=== PATIENT | female | born 1965 | race Caucasian/White ===

== ENCOUNTER 2017-02-28 11:15 | Observation (INO) | payer MEDICAID ==
--- NOTE | 2017-02-28 11:35 | CPEKG ---
Heart Rate: 71 RR Interval: 845 P-R Interval: 144 QRSD Interval: 88 QT Interval: 400 QTC Interval: 435 P [place]: 71 QRS [place]: 53 T Wave [place]: -16 EKG Severity - BORDERLINE ECG - EKG Impression: SINUS RHYTHM EKG Impression: LOW VOLTAGE IN FRONTAL LEADS EKG Impression: BORDERLINE T ABNORMALITIES, DIFFUSE LEADS Electronically Signed By: Pierre Ramírez 02-Mar-2017 09:09:16
[2017-02-28 11:58] LABS: % IMMATURE GRANULYOCYTES 0.2 % (0.0-1.1); ABSOLUTE IMMATURE GRANULOCYTES 0.01 10^3/uL (0.00-0.10); ADD DIFF? NO; ADD MORPH? NO; ADD SCAN? NO; ATYPICAL LYMPHOCYTE FLAG 10 (0-99); FRAGMENT RBC FLAG 0 (0-99); HEMATOCRIT 41.3 % (38.0-47.0); HEMOGLOBIN 13.9 g/dL (12.6-16.3); LEFT SHIFT FLG 0 (0-99); LIPEMIA HEMOLYSIS FLAG 80 (0-99); MEAN CELL HEMOGLOBIN 31.6 pg (27.9-34.1); MEAN CELL HEMOGLOBIN CONCENTR. 33.7 g/dL (32.4-36.7); MEAN CELL VOLUME 93.9 fL (81.5-99.8); MEAN PLATELET VOLUME 11.4 fL (8.7-11.7); PLATELET CLUMPS FLAG 20 (0-99); PLATELET COUNT 231 10^3/uL (150-400); RED CELL DISTRIBUTION WIDTH 12.3 % (11.5-15.2)
--- NOTE | 2017-02-28 12:14 | EDPHY ---
HPI/HX/ROS/PE/MDM Narrative: CHIEF COMPLAINT: Chest pain, dizziness HISTORY OF PRESENT ILLNESS: The patient is a 51 y/o female with a history of GERD arriving with her family members complaining of chest pain onset around midnight this morning, about 12 hours ago. For the last 3 weeks, she's had insomnia, fatigue, and intermittent dizziness and migraines. She has a difficult time describing her dizziness and says it feels "like I need to sit down more" and her "vision is dizzy." Her chest pain today has been intermittent and lasts a few hours at a time. When present, her pain radiates into her back and is associated with nausea and diaphoresis. It is not aggravated by palpation or breathing. She restarted Nexium again 3 days ago, but she does not take medications for her GERD prophylactically. No family or personal history of blood clots, diabetes, cardiac disease at a young age. Today's episode of pain is different from prior episodes of GERD due to its length, severity, associated diaphoresis, and radiation into the back. No fever, chills, shortness of breath, palpitations, vomiting, diarrhea, urinary complaints, headache, lightheadedness. REVIEW OF SYSTEMS: Aside from elements discussed in the HPI, a comprehensive 10-point review of systems was reviewed and is negative. PAST MEDICAL HISTORY: GERD, endoscopy last year, hyperlipidemia SOCIAL HISTORY: Family members at bedside. Smoking marijuana more recently. Does not smoke cigarettes. No alcohol use. PCP: Dr. Jarrett GI: Dr. Huynh. VITAL SIGNS: Reviewed by me GENERAL: Well-developed, well-nourished, resting comfortably in no respiratory distress. HEENT: Atraumatic. Eyes: No icterus, no injection. Mouth: moist mucous membranes. No erythema or lesions. Neck: supple with no adenopathy. LUNGS: Clear to auscultation bilaterally, no wheezes, rhonchi or rales. CARDIAC: Regular rate and rhythm, no rubs, murmurs or gallops. ABDOMEN: Soft, epigastric, RUQ, and LUQ tenderness greater than lower abdominal tenderness, no rebound or guarding. Nondistended, bowel sounds normal. BACK: No CVA tenderness. EXTREMITIES: No trauma. No edema. Range of motion is normal throughout. NEURO: Alert and oriented, grossly nonfocal. SKIN: Warm and dry, no rash. PSYCHIATRIC: Normal mentation, no agitation. Portions of this note were transcribed by a medical chief technician. I personally performed a history, physical exam, medical decision making, and confirmed accuracy of information the transcribed note. ED Course: 51-year-old female presenting with epigastric tenderness, substernal chest discomfort which is relatively severe, pain radiating to her back, and diaphoresis. She has no cardiac disease risk factors except for hypercholesterolemia. EKG demonstrates some flattened T-waves throughout and a questionable subtle ST depression in lead V3. Plan for IV, labs, EKG, and symptom management. 1L IV NS, 40mg IV Protonix and PO GI cocktail administered. Initial labs demonstrate a normal lipase, normal LFTs, negative H pylori, normal white count. Patient's troponin is negative. On reassessment, she reports only very mild improvement in her discomfort. We discussed possible etiologies of her discomfort. It may be related to esophageal spasm, GERD, coronary artery disease, pericarditis. We discussed more aggressive and urgent evaluation for coronary artery disease. I advised the patient I would discuss her case with Cardiology. 1325: Consulted with Dr. Gibson, cardiology. Patient was seen by Dr. Gibson in the emergency department. Right-sided leads were ordered. This EKG is largely unremarkable. Patient received aspirin and nitroglycerin was ordered. However, her blood pressure did decrease to a systolic in the 110's so nitroglycerin was held. Echocardiogram was performed at bedside. Trace pericardial effusion is noted. Toradol 30 mg given. Patient's course discussed with Dr. Jeffery Gifford. Patient will be admitted to the medicine service with cardiology following. Patient was somewhat reluctant on initial conversations regarding the need for admission, however, ultimately she did agree. MDM: After history and physical examination, the differential for chest pain was considered, including but not limited to, myocardial ischemia, acute coronary syndrome, pulmonary embolus, GERD, esophageal spasm, Boerhaave syndrome, pancreatitis, chest wall pain, pleural inflammation and pulmonary infectious causes. - Data Points Imaging Results: Xray: Chest x-ray was obtained. I viewed the images myself on the PACS system. My interpretation of the images is: Normal. The radiology interpretation is: Agrees. I discussed the results with the patient. Laboratory Results: Laboratory Results 02/28/17 11:45 02/28/17 11:45 Medications Given: Discontinued Medications Acetaminophen (Tylenol) 650 mg PO Q4HRS PRN PRN Reason: Pain, Mild/Fever, Can Take PO Stop: 08/27/17 14:35 Last Admin: 03/01/17 13:21 Dose: 650 mg Al Hydroxide/Mg Hydroxide (Maalox Susp) 30 ml PO ONCE ONE Stop: 02/28/17 12:18 Last Admin: 02/28/17 12:46 Dose: 30 ml Aspirin (Aspirin) 325 mg PO EDNOW ONE Stop: 02/28/17 14:32 Last Admin: 02/28/17 14:51 Dose: 325 mg Famotidine (Pepcid) 20 mg PO BID [facility] Stop: 08/27/17 20:59 Last Admin: 03/01/17 10:30 Dose: 20 mg Hyoscyamine Sulfate (Levsin, Hyomax-Sl) 0.25 mg PO ONCE ONE Stop: 02/28/17 12:18 Last Admin: 02/28/17 12:46 Dose: 0.25 mg Sodium Chloride (Ns) 1,000 mls @ 0 mls/hr IV ONCE ONE; Wide Open PRN Reason: Protocol Stop: 02/28/17 12:17 Last Admin: 02/28/17 12:47 Dose: 1,000 mls Pantoprazole Sodium 40 mg/ (Sodium Chloride) 100 mls @ 200 mls/hr IV EDNOW ONE Stop: 02/28/17 12:46 Last Admin: 02/28/17 13:14 Dose: 100 mls Potassium Chloride/Dextrose/Sod Cl (D5w 1/2 Ns W/ 20 Kcl/L) 1,000 mls @ 100 mls /hr IV CONT SHERI Stop: 08/27/17 22:59 Last Admin: 03/01/17 10:02 Dose: 1,000 mls Ketorolac Tromethamine (Toradol) 30 mg IVP Q6HRS PRN PRN Reason: Pain, Inflammatory Stop: 03/05/17 15:06 Last Admin: 02/28/17 21:32 Dose: 30 mg Ketorolac Tromethamine (Toradol) 30 mg IVP ONCE ONE Stop: 03/01/17 10:24 Last Admin: 03/01/17 10:52 Dose: 30 mg Lidocaine (Lidocaine 2% Viscous) 15 ml PO ONCE ONE Stop: 02/28/17 12:18 Last Admin: 02/28/17 12:46 Dose: 15 ml Miscellaneous Medication (Dextroamphetamine/Amphetamine [Adderall Xr 20 Mg Capsule]) 20 mg PO DAILY [facility] Stop: 08/27/17 15:14 Last Admin: 03/01/17 11:36 Dose: 20 mg Morphine Sulfate (Morphine) 2 mg IVP EDNOW ONE Stop: 02/28/17 14:33 Last Admin: 02/28/17 14:51 Dose: 2 mg Morphine Sulfate (Morphine) 2 mg IVP EDNOW ONE Stop: 02/28/17 14:44 Last Admin: 02/28/17 14:45 Dose: Not Given Nitroglycerin (Nitrostat) 0.4 mg SL EDNOW ONE Stop: 02/28/17 13:53 Last Admin: 02/28/17 16:10 Dose: Not Given Pantoprazole Sodium (Protonix) 40 mg PO BID [facility] Stop: 08/27/17 20:59 Last Admin: 03/01/17 10:30 Dose: 40 mg Sucralfate (Carafate Suspension) 1 gm PO QID [facility] Stop: 08/27/17 15:59 Last Admin: 03/01/17 10:30 Dose: 1 gm Zolpidem Tartrate (Ambien) 5 mg PO HS PRN PRN Reason: Sleep/Insomnia Stop: 08/27/17 15:07 Last Admin: 02/28/17 21:46 Dose: 5 mg General Time Seen by Provider: 02/28/17 11:35 Initial Vital Signs: Initial Vital Signs Temperature (C) 36.9 C 02/28/17 11:16 Heart Rate 73 02/28/17 11:16 Respiratory Rate 18 02/28/17 11:16 Blood Pressure 106/81 H 02/28/17 11:16 O2 Sat (%) 98 02/28/17 11:16 O2 Delivery Mode Room Air Allergies/Adverse Reactions: Sulfa (Sulfonamide Antibiotics) Allergy (Severe, Verified 02/28/17 11:21) trouble breathing Home Medications: Medication Instructions Recorded Dextroamphetamine/Amphetamine 20 mg PO DAILY 06/01/15 [Adderall Xr 20 mg Capsule] FLUoxetine HCL [Fluoxetine HCl] 40 mg PO DAILY 06/01/15 Esomeprazole Mag Trihydrate 40 mg PO DAILY 02/28/17 [Nexium] Sucralfate [Carafate 1gm/10ml Oral 1 gm PO QID 02/28/17 Liquid (*)] Zolpidem Tartrate [Ambien 5MG (*)] 5 mg PO HS PRN 02/28/17 Acetaminophen [Tylenol 325mg (*)] 650 mg PO Q4HRS PRN tab 03/01/17 Famotidine [Pepcid 20 MG (*)] 20 mg PO BID PRN #30 tab 03/01/17 traMADol HCL [Ultram] 50 mg PO Q6 PRN #30 tablet 03/01/17 Departure - Departure Disposition: [facility] Inpatient Acute Clinical Impression: Substernal pain Chest pain Qualifiers: Chest pain type: other chest pain Qualified Code(s): R07.89 - Other chest pain Condition: Fair Report Scribed for: Hazel Richmond Report Scribed by: Tracie Childs Date of Report: 02/28/17 Time of Report: 12:14
[2017-02-28 12:15] LABS: ALANINE AMINOTRANSFERASE 34 IU/L (9-52); ALBUMIN 4.3 g/dL (3.5-5.0); ALKALINE PHOSPHATASE 53 IU/L (38-126); ASPARTATE AMINOTRANSFERASE 23 IU/L (14-46); BILIRUBIN,TOTAL 0.7 mg/dL (0.1-1.4); BILIRUBIN-CONJUGATED 0.2 mg/dL (0.0-0.5); BILIRUBIN-UNCONJUGATED 0.5 mg/dL (0.0-1.1); CALCIUM 10.2 mg/dL (8.5-10.4); CARBON DIOXIDE 24 mEq/l (22-31); CHLORIDE 105 mEq/L (97-110); CREATININE 0.8 mg/dL (0.6-1.0); GLOMERULAR FILTRATION RATE > 60; GLUCOSE 93 mg/dL (70-100); SODIUM 141 mEq/L (134-144); TOTAL PROTEIN 7.7 g/dL (6.3-8.2)
[2017-02-28] MEDS ORDERED: NS 1,000 ML IV ONE (12:16)
[2017-02-28] MEDS ORDERED: PANTOPRAZOLE SODIUM 40 MG in NS 100 ML IV ONE (12:17)
[2017-02-28] MEDS ORDERED: LIDOCAINE 2% VISCOUS 15 ML UDCUP PO ONE (12:17)
[2017-02-28] MEDS ORDERED: MAG HYDROX/AL HYDROX/SIMETH 30 ML UDCUP PO ONE (12:17)
[2017-02-28] MEDS ORDERED: HYOSCYAMINE SULFATE 0.125 MG TAB PO ONE (12:17)
[2017-02-28 12:23] LABS: ANION GAP 12 mEq/L (8-16); POTASSIUM 4.1 mEq/L (3.5-5.2); TROPONIN I < 0.012 ng/mL (0.000-0.034)
[2017-02-28] MEDS ORDERED: NITROGLYCERIN 0.4 MG BTL SL ONE (13:52)
--- NOTE | 2017-02-28 14:17 | PDCONSULT ---
Acid Purification Equipment Operator Note: CC: chest pain Consult request: ER team HPI: Patient is a 61 y/o female with fairly unremarkable past medical history (no CAD , HTN, HLP, or DM), who presents to [facility] ER with complaints of "chest pain". Symptoms began late last night, and prevented sleep. Given the ongoing discomfort, the patient and family presented to the ER. Overall, patient states that she has not been feeling "right" for the past several weeks. Questionable viral illness at home with other family members. Patient with strong history of GERD and GI follow up in past with reports of "pre Barretts". Patient is on no prescription therapy. At present, the patient is having "waves of pain" with radiation into both shoulders and into the neck. Nausea has also been noted with minimal emesis. Dizziness and diaphoresis have also been noted. Patient reported "perimenopausal" at present. Some exercise (walking) without shasha symptoms noted with this activity. There has been some pain radiation into her back. At present, the patient's pain is reaching "9/10". GI cocktail did little to nothing for the symptoms noted. ECG with non specific ST/T wave changes. Initial cardiac biomarker (troponin only) without any elevation noted (after >6 hours of discomfort). In the semi recent past (about 1.5 years ago), a dehydration event led to cardiac work up with stress testing. No further testing (invasive) was performed after this testing was completed. ROS: Beyond that which was mentioned above, a 12 point review of systems is unremarkable PMHx: No CAD, HTN, HLP, or DM. (+) GERD, (?) hypothyroidism (not on therapy at present) SHx: no tobacco, no ETOH, some MMJ use PFHx: (+) cancer, (+) GERD, (-) premature CAD Allergies to sulfa No prescription medications VITALS: as per EMR (no tachycardia, no hypertension, normal oxygen sats on room air) GEN: some degree of discomfort given ongoing waves of epigastric, low substernal pain HEENT: NCAT with PERRLA NECK: No JVD LUNGS: CTA bilaterally, no c/w/r COR: RRR without m/r/g, normal S1S2, no S3 or S4, PMI NDP ABD: soft, NABS, discomfort to the epigastric region EXT: No c/c/e, 2+ DP/PT/RAD NEURO: no focal deficits labs: normal troponin, normal electrolytes, normal renal function. no anemia ECG: normal sinus rhythm with non specific ST/T wave changes. flattened T waves to inferolateral leads. T wave inversion to V1, V2, V3 CXR: pending ASSESSMENT: Patient is a 51 y/o female with unremarkable past medical history with complaints of chest pains. Pain location to the substernal region and epigastric. History of GERD, but according to the patient, these symptoms are different. No cardiac biomarker elevation has been noted (>6 hours of discomfort), but the ECG has non specific ST/T wave changes noted. Stress testing, according to the patient, a few years ago (1.5? 2?) without further cardiac testing performed. No cardiac follow up was recommended. PLAN: (1) CXR pending - assessment of cardiac silhouette and lung deng (2) Would trial the patient on SL NTG to determine if any improvement in symptoms noted (3) Would repeat cardiac enzymes in 6 hours with ECG (4) Right sided ECG is pending (5) Would obtain Echo given the patient's ongoing complaints of chest pains (6) If cardiac enzymes are normal, and ECGs do not evolve, would arrange for patient to have Anju MPI in am, however, symptoms must be controlled prior to this testing.
[2017-02-28] MEDS ORDERED: ASPIRIN 325 MG TAB PO ONE (14:31)
--- NOTE | 2017-02-28 14:34 | CPEKG ---
Heart Rate: 56 RR Interval: 1071 P-R Interval: 148 QRSD Interval: 92 QT Interval: 420 QTC Interval: 406 P [place]: 77 QRS [place]: 52 T Wave [place]: 15 EKG Severity - BORDERLINE ECG - EKG Impression: SINUS RHYTHM EKG Impression: LOW VOLTAGE IN FRONTAL LEADS EKG Impression: BORDERLINE T ABNORMALITIES, ANT-LAT LEADS Electronically Signed By: Hazel Richmond 28-Feb-2017 15:50:27
[2017-02-28] MEDS ORDERED: ONDANSETRON DISINTEGRATING 4 MG TAB PO PRN (14:36)
[2017-02-28] MEDS ORDERED: ONDANSETRON 4 MG/2 ML VIAL IVP PRN (14:36)
[2017-02-28] MEDS ORDERED: ACETAMINOPHEN 325 MG TAB PO PRN (14:36)
[2017-02-28] MEDS ORDERED: MBX SOLN 30 ML BOTTLE PO PRN (14:39)
[2017-02-28] MEDS ORDERED: NITROGLYCERIN 0.4 MG BTL SL PRN (14:39)
[2017-02-28] MEDS ORDERED: ACETAMINOPHEN/ASA/CAFFEINE 1 EACH TAB PO PRN (15:08)
[2017-02-28] MEDS ORDERED: HYDROmorphONE/DILAUDID 1 MG/ML INJ IVP PRN (15:08)
[2017-02-28] MEDS ORDERED: ZOLPIDEM TARTRATE 5 MG TAB PO PRN (15:08)
[2017-02-28] MEDS ORDERED: KETOROLAC 30 MG/1 ML SDV ONE (15:19)
[2017-02-28] MEDS: KETOROLAC 30 MG/1 ML SDV IVP PRN ×2 (15:31→21:32)
[2017-02-28 16:26] LABS: CREATINE KINASE-MB FRACTION 0.74 ng/mL (0.00-3.19); TROPONIN I < 0.012 ng/mL (0.000-0.034)
[2017-02-28] MEDS: Dextroamphetamine/Amphetamine [Adderall Xr 20 Mg Capsule] 20 MG) PO SCH (17:05)
[2017-02-28] MEDS: SUCRALFATE 1 GM/10 ML UDCUP PO SCH ×2 (17:06→21:40)
--- NOTE | 2017-02-28 17:28 | PDGENHP ---
History and Physical - Chief Complaint Acute chest pain - History of Present Illness Primary care provider: Dr. Shemar Jarrett Primary card lacer jacquard: Dr. Nito Huynh HPI: 51-year-old female presenting with acute chest pain characterized as severe pain located in the midsternal area radiating to her back with associated diaphoresis, headache, generalized weakness. Her symptoms began at rest. The chest pain was initially ascribed to reflux, then became more severe and began radiating to the back, which is atypical for her previous reflux. The onset of the chest pain was on the evening prior and duration has been intermittent thereafter, waxing and waning approximately every 40 minutes, with increased frequency to every 5 minutes at the time of this presentation. The symptoms have occurred in the context of approximately 3-4 days of incessant headaches, which patient reports as her chronic migraine headaches, myalgias, rhinorrhea, rendering her unable to sleep. Those symptoms have occurred in the context of approximately 1 month of generalized fatigue what patient has been describing as markie menopausal symptoms. 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 Also recommended that she begin a proton pump inhibitor and Carafate. She did not adhere to either of these recommendations. She otherwise reports that prior to her onset of symptoms her exercise tolerance has been good, but she has not recently exercise secondary to the fatigue mentioned above. History Information - Allergies/Home Medication List Allergies/Adverse Reactions: Sulfa (Sulfonamide Antibiotics) Allergy (Severe, Verified 02/28/17 11:21) trouble breathing Home Medications: Dextroamphetamine/Amphetamine [Adderall Xr 20 mg Capsule] 20 mg PO DAILY [Last Taken 02/27/17] FLUoxetine HCL [Fluoxetine HCl] 40 mg PO DAILY 06/01/15 [Last Taken 02/27/17] Aspirin/Acetaminophen/Caffeine [Excedrin Migraine Geltab] 1 each PO DAILY PRN [Last Taken Unknown] Esomeprazole Mag Trihydrate [Nexium] 40 mg PO DAILY 02/28/17 [Last Taken ] Sucralfate [Carafate 1gm/10ml Oral Liquid (*)] 1 gm PO QID 02/28/17 [Last Taken Unknown] Zolpidem Tartrate [Ambien 5MG (*)] 5 mg PO HS PRN 02/28/17 [Last Taken Unknown] I have personally reviewed and updated: family history, medical history, social history, surgical history - Past Medical History GERD (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 Breast augmentation surgery - Family History Additional family history: Mother with ovarian cancer, father with lung cancer, grandparent with esophageal cancer - Social History Smoking Status: Never smoked Alcohol Use: None Drug Use: None Additional social history: Likes to drink coffee, active person, leaving for [place] in 5 days Review of Systems Review of Systems: ROS: 10pt was reviewed & negative except for what was stated in HPI & below Constitutional: Reports: diaphoresis, weakness EENMT: Reports: other (Rhinorrhea) Cardiac: Reports: chest pain Physical Exam Physical Exam: Temp Pulse Resp BP Pulse Ox 36.7 C 54 L 16 113/53 L 96 02/28/17 16:10 02/28/17 16:10 02/28/17 16:10 02/28/17 16:10 02/28/17 16:10 Constitutional: appears nourished, uncomfortable, No no apparent distress ( Intermittently distressed), No not in pain (Intermittently in pain), No chronically ill appearing Eyes: PERRL, anicteric sclera, EOMI Ears, Nose, Mouth, Throat: moist mucous membranes, hearing normal, ears appear normal, no oral mucosal ulcers Cardiovascular: regular rate and rhythym, no murmur, rub, or gallop, No edema Respiratory: no respiratory distress, no rales or rhonchi, clear to auscultation Gastrointestinal: normoactive bowel sounds, no palpable masses, tenderness ( Mild tenderness without any focality, negative Gilbert sign), No guarding, No distension Genitourinary: no bladder fullness, no bladder tenderness Skin: other (No rashes or vesicular lesions over the chest) Musculoskeletal: other (Full range of motion left shoulder without any pain, full range of motion of the neck without any tenderness or pain, tenderness over the sternum) Neurologic: AAOx3, sensation intact bilaterally, No weakness, No facial droop Psychiatric: not encephalopathic, thought process linear, anxious, No agitated Lab Data & Imaging Review 02/28/17 11:45 02/28/17 11:45 WBC 4.45 10^3/uL (3.80-9.50) 02/28/17 11:45 RBC 4.40 10^6/uL (4.18-5.33) 02/28/17 11:45 Hgb 13.9 g/dL (12.6-16.3) 02/28/17 11:45 Hct 41.3 % (38.0-47.0) 02/28/17 11:45 MCV 93.9 fL (81.5-99.8) 02/28/17 11:45 MCH 31.6 pg (27.9-34.1) 02/28/17 11:45 MCHC 33.7 g/dL (32.4-36.7) 02/28/17 11:45 RDW 12.3 % (11.5-15.2) 02/28/17 11:45 Plt Count 231 10^3/uL (150-400) 02/28/17 11:45 MPV 11.4 fL (8.7-11.7) 02/28/17 11:45 Neut % (Auto) 34.4 % (39.3-74.2) L 02/28/17 11:45 Lymph % (Auto) 54.6 % (15.0-45.0) H 02/28/17 11:45 [place] % (Auto) 8.8 % (4.5-13.0) 02/28/17 11:45 Eos % (Auto) 0.9 % (0.6-7.6) 02/28/17 11:45 Baso % (Auto) 1.1 % (0.3-1.7) 02/28/17 11:45 Nucleat RBC Rel Count 0.0 % (0.0-0.2) 02/28/17 11:45 Absolute Neuts (auto) 1.53 10^3/uL (1.70-6.50) L 02/28/17 11:45 Absolute Lymphs (auto) 2.43 10^3/uL (1.00-3.00) 02/28/17 11:45 Absolute Monos (auto) 0.39 10^3/uL (0.30-0.80) 02/28/17 11:45 Absolute Eos (auto) 0.04 10^3/uL (0.03-0.40) 02/28/17 11:45 Absolute Basos (auto) 0.05 10^3/uL (0.02-0.10) 02/28/17 11:45 Absolute Nucleated RBC 0.00 10^3/uL (0-0.01) 02/28/17 11:45 Immature Gran % 0.2 % (0.0-1.1) 02/28/17 11:45 Immature Gran # 0.01 10^3/uL (0.00-0.10) 02/28/17 11:45 D-Dimer < 0.27 ug/mLFEU (0.00-0.50) 02/28/17 11:45 Sodium 141 mEq/L (134-144) 02/28/17 11:45 Potassium 4.1 mEq/L (3.5-5.2) 02/28/17 11:45 Chloride 105 mEq/L (97-110) 02/28/17 11:45 Carbon Dioxide 24 mEq/l (22-31) 02/28/17 11:45 Anion Gap 12 mEq/L (8-16) 02/28/17 11:45 BUN 15 mg/dL (7-23) 02/28/17 11:45 Creatinine 0.8 mg/dL (0.6-1.0) 02/28/17 11:45 Estimated GFR > 60 02/28/17 11:45 Glucose 93 mg/dL (70-100) 02/28/17 11:45 Calcium 10.2 mg/dL (8.5-10.4) 02/28/17 11:45 Total Bilirubin 0.7 mg/dL (0.1-1.4) 02/28/17 11:45 Conjugated Bilirubin 0.2 mg/dL (0.0-0.5) 02/28/17 11:45 Unconjugated Bilirubin 0.5 mg/dL (0.0-1.1) 02/28/17 11:45 AST 23 IU/L (14-46) 02/28/17 11:45 ALT 34 IU/L (9-52) 02/28/17 11:45 Alkaline Phosphatase 53 IU/L (38-126) 02/28/17 11:45 Creatine Kinase 74 IU/L (0-156) 02/28/17 15:50 CK-MB (CK-2) Fraction 0.74 ng/mL (0.00-3.19) 02/28/17 15:50 Troponin I < 0.012 ng/mL (0.000-0.034) 02/28/17 15:50 Total Protein 7.7 g/dL (6.3-8.2) 02/28/17 11:45 Albumin 4.3 g/dL (3.5-5.0) 02/28/17 11:45 Lipase 107 IU/L (23-300) 02/28/17 11:45 H. pylori IgG Antibody NEGATIVE (NEG) 02/28/17 11:45 Visualized and Interpreted Chest x-ray results: Yes Chest X-Ray results: no infiltrate Visualized and Interpreted EKG results: Yes EKG Interpretation: Positive for: other (Normal sinus mechanism, less than [address]-depression in lead V3, T-wave inversion in leads V3 and V4) Assessment & Plan Assessment: 51-year-old female presenting with acute chest pain in the setting of GERD Plan: 1. Chest pain. Acute, new problem this provider, further workup indicated. Potential etiologies include esophagitis versus pericarditis versus less likely acute coronary syndrome. -discussed with Dr. Sam Grewal, we both agree that upper endoscopy would be the 1st, high yield test performed in the setting of history of Dutton's esophagus which has gone untreated for the past year and may have progressed to overt erosive esophagitis -cont BID ppi, carafate, h2 shawn, gi cocktail PRN, toradol PRN, dilaudid PRN -discussed with Dr. Clovis Gibson, he does not recommend performing stress test in the setting of active pain, but the patient's pain has resolved with intervention, stress test could be performed tomorrow if upper endoscopy does not yield a clear diagnosis; he indicates that the echocardiogram does not demonstrate focal wall motion abnormalities, and the echo was performed while patient was experiencing active chest pain, indicating that acute coronary syndrome and obstructive coronary disease as the cause of her pain is much less likely -that being said, there is a small pericardial effusion, the patient's chest pain was significantly alleviated with Toradol, indicating that pericarditis is a possibilityin the setting of possible URI, if the upper endoscopy does not reveal a clear source -will cycle cardiac enzymes, continue to monitor on telemetry, and would recommend performing stress testing tomorrow if EGD is unremarkable 2. Hyperlipidemia. Reviewed outside records including 02/22/2017 lipid panel demonstrating LDL of 153 -recommend she consider rechecking her lipid panel after returning from her trip , and considering statin future Diet. Cardiac, then NPO after midnight prophylaxis. Low risk patient, SCDs Code. Full Disposition. Anticipated discharge is 03/01/2017, pending further workup as outlined above.
--- NOTE | 2017-02-28 17:51 | CPEKG ---
Heart Rate: 64 RR Interval: 938 P-R Interval: 156 QRSD Interval: 90 QT Interval: 432 QTC Interval: 446 P [place]: 76 QRS [place]: 58 T Wave [place]: 4 EKG Severity - BORDERLINE ECG - EKG Impression: SINUS RHYTHM EKG Impression: BORDERLINE T ABNORMALITIES, ANT-LAT LEADS Electronically Signed By: Naila Kelly 01-Mar-2017 06:37:20
[2017-02-28] MEDS: FAMOTIDINE 20 MG TAB PO SCH (21:40)
[2017-02-28] MEDS: PANTOPRAZOLE SODIUM 40 MG TAB PO SCH (21:40)
[2017-03-01 04:04] LABS: % IMMATURE GRANULYOCYTES 0.2 % (0.0-1.1); ABSOLUTE IMMATURE GRANULOCYTES 0.01 10^3/uL (0.00-0.10); ADD DIFF? NO; ADD MORPH? NO; ADD SCAN? NO; ATYPICAL LYMPHOCYTE FLAG 10 (0-99); FRAGMENT RBC FLAG 0 (0-99); HEMATOCRIT 37.1 % (38.0-47.0); HEMOGLOBIN 12.4 g/dL (12.6-16.3); LEFT SHIFT FLG 0 (0-99); LIPEMIA HEMOLYSIS FLAG 80 (0-99); MEAN CELL HEMOGLOBIN 31.9 pg (27.9-34.1); MEAN CELL HEMOGLOBIN CONCENTR. 33.4 g/dL (32.4-36.7); MEAN CELL VOLUME 95.4 fL (81.5-99.8); MEAN PLATELET VOLUME 11.1 fL (8.7-11.7); PLATELET CLUMPS FLAG 0 (0-99); PLATELET COUNT 192 10^3/uL (150-400); RED BLOOD CELL COUNT 3.89 10^6/uL (4.18-5.33); RED CELL DISTRIBUTION WIDTH 12.4 % (11.5-15.2)
[2017-03-01 04:23] LABS: ALANINE AMINOTRANSFERASE 27 IU/L (9-52); ALBUMIN 3.4 g/dL (3.5-5.0); ALKALINE PHOSPHATASE 43 IU/L (38-126); ANION GAP 10 mEq/L (8-16); ASPARTATE AMINOTRANSFERASE 19 IU/L (14-46); BILIRUBIN,TOTAL 0.7 mg/dL (0.1-1.4); CALCIUM 9.4 mg/dL (8.5-10.4); CARBON DIOXIDE 23 mEq/l (22-31); CHLORIDE 107 mEq/L (97-110); CREATININE 0.8 mg/dL (0.6-1.0); GLOMERULAR FILTRATION RATE > 60; GLUCOSE 88 mg/dL (70-100); MAGNESIUM 1.8 mg/dL (1.6-2.3); POTASSIUM 4.2 mEq/L (3.5-5.2); SODIUM 140 mEq/L (134-144); TOTAL PROTEIN 6.2 g/dL (6.3-8.2)
[2017-03-01 04:28] LABS: TROPONIN I < 0.012 ng/mL (0.000-0.034)
[2017-03-01] MEDS: D5W 1/2 NS W/ 20 KCl/L 1,000 ML IV SCH ×2 (07:22→10:02)
[2017-03-01] MEDS ORDERED: MIDAZOLAM 2 MG/2 ML VIAL ONE (07:54)
[2017-03-01] MEDS ORDERED: fentaNYL 100 MCG/2 ML INJ ONE (07:55)
--- NOTE | 2017-03-01 08:20 | PDPROPOC ---
Sedation Plan of Care Sedation Plan of Care: vital signs stable, mental status noted, patient educated of risks, benefits, alternatives, patient can tolerate sedation ASA Classification: ASA 2 Planned drugs: fentanyl, midazolam Mallampati Score: Class 2 Mallampati Reference Image: Patient passed 3-3-2 rule?: Yes
--- NOTE | 2017-03-01 08:21 | SOAPPROG ---
SOAP Progress Note Assessment/Plan: Assessment:Plan: see full dictated consult Dutton's non cardiac CP EGD this am PPI qam +/- QHS H2RA Farshad Lipscomb M.D. 03/01/17 08:20 Objective: Vital Signs Temp Pulse Resp BP Pulse Ox 36.4 C 57 L 15 93/50 L 94 03/01/17 00:00 03/01/17 03:52 03/01/17 03:52 03/01/17 03:52 03/01/17 03:52 Laboratory Results 03/01/17 03:46 03/01/17 03:46 02/28/17 03/01/17 03/02/17 05:59 05:59 05:59 Intake Total 1400 Balance 1400 ICD10 Worksheet Patient Problems: Problems Problem Status Onset Chest pain Acute Substernal pain Acute
--- NOTE | 2017-03-01 08:37 | POSTOPPROG ---
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
[2017-03-01] MEDS ORDERED: FLUoxetine 20 MG CAP PO SCH (09:00)
[2017-03-01] MEDS ORDERED: PANTOPRAZOLE SODIUM 40 MG TAB PO SCH (09:00)
[2017-03-01] MEDS ORDERED: ASPIRIN EC 325 MG TAB PO SCH (09:00)
[2017-03-01 09:18] VITALS: O2SAT 100
[2017-03-01 09:38] VITALS: RESP 18
[2017-03-01] MEDS ORDERED: KETOROLAC 30 MG/1 ML SDV IVP ONE (10:23)
[2017-03-01] MEDS: FAMOTIDINE 20 MG TAB PO SCH (10:30)
[2017-03-01] MEDS: SUCRALFATE 1 GM/10 ML UDCUP PO SCH (10:30)
[2017-03-01] MEDS: PANTOPRAZOLE SODIUM 40 MG TAB PO SCH (10:30)
[2017-03-01] MEDS: Dextroamphetamine/Amphetamine [Adderall Xr 20 Mg Capsule] 20 MG) PO SCH (11:36)
[2017-03-01 12:57] VITALS: BP 107/58; PULSE 57; TEMP 97.9
--- NOTE | 2017-03-01 14:00 | PDCARPN ---
Cardiology Progress Note Chief Complaint: Chest Pain Assessment/Plan: Assessment: Chest pain preventing sleep Wednesday night. History of pre-Barretts. Troponin level normal x4. EKG on admit RSR with V1,V2,V3 T-wave inversion. No past hx of CAD,CHF, HTN or BM Her lipids are elevated. ECHO showed No Wall Motion abnormality at time of pain. Not likely cardiac pain. Consider Lexiscan Stress Test as outpatient if pain persists despite GI treatment. She has EKG Anterior lead T wave inversion HLP: Lipids result: TC 234; Trig 73; HDL 67; LDL 153. GERD and Barretts Identified with GI procedure this AM. Followed by GI. Likely cause of chest pain GI, and not cardiac. Plan:Consider Nuclear Stress Test as outpatient if she continues to have chest pain despite GI treatment. Will sign off. Call if further needs. 03/01/17 14:00 Objective: Vital Signs (8 Hrs) Temp Pulse Resp BP Pulse Ox 03/01/17 12:00 36.6 C 57 L 18 107/58 L 100 03/01/17 09:37 36.4 C 51 L 18 90/51 L 100 03/01/17 09:15 20 108/68 100 03/01/17 09:10 16 107/62 99 03/01/17 09:05 16 112/62 98 03/01/17 09:00 18 113/67 99 03/01/17 08:55 16 117/69 100 03/01/17 08:50 16 112/68 99 03/01/17 08:45 16 110/68 96 03/01/17 08:40 16 99/66 L 96 03/01/17 08:35 18 100/57 L 97 03/01/17 08:30 16 98/55 L 95 03/01/17 08:25 16 101/69 94 03/01/17 08:20 16 98/62 L 96 03/01/17 08:15 18 99/64 L 95 03/01/17 08:10 16 102/62 95 03/01/17 08:05 16 107/62 96 Intake/Output (24 Hrs) 02/28/17 03/01/17 03/02/17 05:59 05:59 05:59 Intake Total 1400 Balance 1400 Intake: Oral (ml) 400 IV Infused (ml) 1000 Other: Weight 70.9 kg Number of Voids 1 Result Diagrams: 03/01/17 03:46 03/01/17 03:46 Cardiac Labs: Cardiac Lab Results (72 Hrs) 03/01/17 02/28/17 02/28/17 03:46 22:06 15:50 CK-MB (CK-2) Fraction 0.74 Troponin I < 0.012 < 0.012 < 0.012 - Physical Exam Constitutional: WDWN Cardiovascular: regular rate and rhythm Respiratory: other (no SOB) Gastrointestinal: other (abd discomfort) Psychiatric: cooperative, interactive ICD10 Worksheet Patient Problems: Problems Problem Status Onset Chest pain Acute - ICD10 Problem Qualifiers (1) Chest pain Qualifiers: Chest pain type: other chest pain Qualified Code(s): R07.89 - Other chest pain; R07.8 - Other chest pain
--- NOTE | 2017-03-01 15:59 | GCON ---
[f rep st] CONSULTATION REFERRING PHYSICIAN: Dr. Gifford INDICATION FOR CONSULTATION: Noncardiac chest pain and epigastric pain in a patient with known short-segment Dutton's diagnosed in 2016. HISTORY OF PRESENT ILLNESS: The patient is a pleasant 51-year-old female who has a past medical history significant for ADD and OCD, who was seen by my partner, Dr. Huynh, last year for upper endoscopy. There was an irregular Z- line that did show intestinal metaplasia and she was diagnosed with Dutton's. It was recommended that she take a PPI plus/minus Carafate. She has been noncompliant with her medications. She does take a significant amount of ibuprofen for her migraine headaches. She was admitted yesterday with significant chest pain and was ruled out for FL. Her chest pain has improved. She has more epigastric pain on exam today. I am now here to help evaluate her noncardiac chest pain, likely an acid issue with either more esophagitis, gastritis or ulceration related to ibuprofen. PAST MEDICAL/SURGICAL HISTORY: Reflux esophagitis with Dutton's diagnosed on EGD. Hyperlipidemia. She had breast augmentation surgery. MEDICATIONS: Medications at home include Adderall, fluoxetine, aspirin, ibuprofen, Nexium she started recently, Carafate restarted recently, and Ambien 5 mg p.o. at bedtime. ALLERGIES: Sulfa drugs cause trouble breathing. SOCIAL HISTORY: She does not smoke. She does not drink. She does drink coffee. FAMILY HISTORY: ovarian cancer in mother, lung cancer in father, esophageal cancer in grandparent REVIEW OF SYSTEMS: A complete 10-point review of systems is performed and is negative other than noted in the HPI. Pertinent negatives here include no vomiting, no dysphagia, no odynophagia, no early satiety, no diarrhea, no hematochezia, no weight loss. PHYSICAL EXAMINATION: GENERAL: Well-developed, well-nourished female, in no acute distress. VITAL SIGNS: Her pressure is 107/62, pulse 56, respirations 16. She is 96% on room air. HEENT: Eyes: Anicteric. LACEY. EOMI. Mouth: No lesions. Moist mucous membranes. NECK: Supple. Full range of motion. No JVD. BACK: No spine tenderness. No CVA tenderness. LUNGS: Clear to auscultation. CARDIAC: S1, S2. Regular rhythm, mildly bradycardic. No murmurs, rubs or gallops appreciated. ABDOMEN: Bowel sounds are normal pitch and frequency. Abdomen is soft with epigastric tenderness. No rebound. No guarding. No hepatosplenomegaly. EXTREMITIES: No cyanosis, clubbing, or edema. NEUROLOGIC: Cranial nerves intact. Nonfocal. SKIN: No stigmata of advanced liver disease. No rashes. LABORATORY DATA: From this morning, WBC 4.63, hemoglobin 12.4, hematocrit 37.1 , platelet count 192. Yesterday, her hemoglobin was 13.9, hematocrit 41.3. Her D-dimers were negative from 02/28. From 03/01, sodium 140, potassium 4.2, chloride 107, bicarb 23, BUN 17, creatinine 0.8, glucose 88, calcium 9.4, magnesium 1.4. Total bilirubin 0.4, AST 19, ALT 27, alkaline phosphatase 43. From yesterday, total protein 7.7, albumin 4.3, lipase 107. From yesterday, H pylori serum IgG negative. She had an electrocardiogram yesterday. She also had normal troponin levels. They felt her symptoms were likely reflux related. ASSESSMENT: 1. Noncardiac chest pain. 2. History of short-segment Dutton's. 3. Long-term significant use of nonsteroidal anti-inflammatory drugs for migraine headaches. 4. History of attention deficit disorder and obsessive-compulsive disorder. RECOMMENDATIONS: 1. Proceed with EGD to make sure there is no worsening of her Dutton's or significant esophagitis. I expect she will have some gastric irritation from ibuprofen use. If the EGD is not revealing, then evaluating her gallbladder would be appropriate. She does not have any elevated liver enzymes that make me think that her chest pain is biliary colic. 2. Do recommend PPI therapy given Dutton's. This should be long-term once a day half an hour before breakfast. 3. I am not a big fan of Carafate. Carafate can be used, but it should be from other medications as it will bind then. It might be good in the acute phase of this significant irritation but skilled nursing I do not think it is a very good medication for acid reflux or Dutton's. 4. P.r.n. use of H2RA for nighttime symptoms. 5. Further recommendations to follow results of EGD. Thank you very much for allowing me to participate in this patient's health care. Please do not hesitate to call me with any questions. Copy requested to: Dr. Jarrett /[id number]/MODL MTDD
--- NOTE | 2017-03-01 19:34 | GDS ---
[f rep st] DISCHARGE SUMMARY DISCHARGE DIAGNOSES: Include: 1. Dutton's esophagitis. 2. Antral stomach ulcerations. 3. Chest pain, thought secondary to her above esophageal and gastric abnormalities. 4. Hyperlipidemia. 5. Attention deficit, hyperactivity disorder. 6. Depression. 7. Intermittent migraine headaches. HISTORY OF PRESENT ILLNESS: A 51-year-old female who presents with chest pain. For details of ruth ram's initial presentation, please see the history and physical dated 02/28/2017. CONSULTATIVE SERVICES: Include gastroenterology. PROCEDURES: On 03/01/2017, patient underwent EGD that showed Dutton's esophagitis as well as gastri c ulcers. HOSPITAL COURSE: By issue: Dutton's esophagitis/gastric ulcerations. Patient was initiated on pro ton pump inhibitor and p.r.n. H2 shawn per Gastroenterology. Recommended that she follow in the tpatient setting for postprocedural followup. The patient was provided with Ultram p.r.n. for pain, and given strict education related to the use of NSAIDs and barrier breakers ongoing. Lengthy educat ion was performed related to medication compliance, as this is a diagnosis patient had been given ove r a year ago, which she chose not to treat or follow up on. MEDICATIONS AT THE TIME OF TRANSFER: Please reference medication reconciliation form printed on 02/12. FOLLOWUP APPOINTMENTS: Include with Gastroenterology in the next 4-6 weeks. PENDING STUDIES: At the time of this dictation, include biopsies obtained during EGD which will be f ollowed by Dr. Grewal. I spent greater than 30 minutes in the planning and coordination of this discharge. /[id number]/MODL
== END 2017-03-01 14:54 | disposition home or self-care (01) ==
LOC: F2W 16:04
PROVIDERS: ADMIT Internal Medicine; ATTEND Internal Medicine
PROC: 0DB68ZX Excision of Stomach, Via Natural or Artificial Opening Endoscopic, Diagnostic (ICD-10-PCS; principal; 2017-02-28)
PROC: 0DB38ZX Excision of Lower Esophagus, Via Natural or Artificial Opening Endoscopic, Diagnostic (ICD-10-PCS; principal; 2017-02-28)
DX: K20.9 Esophagitis, unspecified (principal); K25.9 Gastric ulcer, unspecified as acute or chronic, without hemorrhage or perforation; R07.9 Chest pain, unspecified; E78.5 Hyperlipidemia, unspecified; F90.9 Attention-deficit hyperactivity disorder, unspecified type; G43.909 Migraine, unspecified, not intractable, without status migrainosus; F12.90 Cannabis use, unspecified, uncomplicated
CPT/HCPCS: 43239; 71020; 93005; 93306; G0378; 96365; J1885; J2250; J3010

== ENCOUNTER 2017-04-29 07:55 | Day surgery (SDC) | payer MEDICAID ==
[2017-04-29] MEDS ORDERED: LIDOCAINE 1% 2 ML INJ ID PRN (08:29)
[2017-04-29] MEDS ORDERED: LR 1,000 ML IV ONE (08:29)
[2017-04-29] MEDS ORDERED: DEXAMETHASONE 4 MG/ML VIAL IVP PRN (09:11)
[2017-04-29] MEDS ORDERED: ONDANSETRON 4 MG/2 ML VIAL IVP PRN (09:11)
[2017-04-29] MEDS ORDERED: ALBUTEROL 3 ML DEYVIAL IH PRN (09:11)
[2017-04-29] MEDS ORDERED: NALOXONE HCL 0.4 MG/ML INJ IVP PRN (09:11)
[2017-04-29] MEDS ORDERED: ACETAMINOPHEN 500 MG TAB PO PRN (09:11)
[2017-04-29] MEDS ORDERED: HYDROCODONE/APAP 5/325 TAB PO PRN (09:11)
[2017-04-29] MEDS ORDERED: fentaNYL 100 MCG/2 ML INJ IVP PRN (09:11)
[2017-04-29] MEDS ORDERED: HYDROmorphONE/DILAUDID 1 MG/ML INJ IVP PRN (09:11)
[2017-04-29] MEDS ORDERED: MIDAZOLAM 2 MG/2 ML VIAL IVP ONE (09:11)
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
[2017-04-29] MEDS ORDERED: PROPOFOL/EMULSION 500 MG/50 ML BOTTLE IV ONE (09:19)
[2017-04-29] MEDS ORDERED: PROPOFOL 200 MG/20 ML VIAL ONE (09:21)
[2017-04-29] MEDS ORDERED: LIDOCAINE 2% 5 ML SDV ONE (09:22)
--- NOTE | 2017-04-29 09:56 | PDGENHP ---
History & Physical Chief Complaint: Abdominal pain, epigastric. Blood in stool History of Present Illness: Episodic hematochezia. Epigastric pain. Recent EGD with esophagitis and gastric ulcer disease Pertinent Past, Social, Family History: . Esophagitis. No family history of colon cancer. No ETOH. No Tobacco Relevant Physical Exam: NAD. CTA B/L. RRR without m/r/g. ABD soft. NT/ND. No distension. NABS Cardiorespiratory Assessment: ASA II. EGD. Colonoscopy
[2017-04-29] MEDS ORDERED: RANITIDINE 50 MG/2 ML VIAL ONE (09:59)
--- NOTE | 2017-04-29 10:03 | GIREPORT ---
[facility] Surgical Services - Endoscopy Department Patient Name: Ligia Laura Procedure Date: 04/29/2017 9:33 AM Patient Type: Outpatient Attending MD/ ER Physician: Nito Huynh MD Procedure: Upper GI endoscopy Indications: Epigastric abdominal pain, Follow-up of reflux esophagitis Providers: Nito Huynh MD Medicines: Propofol per Anesthesia Complications: No immediate complications. Description of Procedure: After obtaining informed consent, the endoscope was passed under direct vision. Throughout the procedure, the patient's blood pressure, pulse, and oxygen saturations were monitored continuously. The Endoscope was intro duced through the mouth, and advanced to the second part of duodenum. The [facility] er GI endoscopy was accomplished without difficulty. The patient tolerated th e procedure well. Findings: The esophagus was normal. The stomach was normal. The examined duodenum was normal. Estimated Blood Loss: Estimated blood loss: none. Post Op Diagnosis: - Normal esophagus. - Normal stomach. - Normal examined duodenum. - No specimens collected. - No endoscopic cause for her abdominal pain is found on today's exam. - The previously documented esophagitis and gastric erosions have heale d completely. Recommendation: - Continue present medications. - Return to GI office as previously scheduled. - Perform a colonoscopy today. - Thank you for allowing me to be involved in the care of your patient. Attending Participation: I personally performed the entire procedure without the assistance of a fellow, resident or surg ical captain assistant. Nito Huynh MD Nito Huynh MD 04/29/2017 10:02:50 AM This report has been signed electronicallyDavid MD Lino Number of Addenda: 0 Note Initiated On: 04/29/2017 9:33 AM [email or web address]
--- NOTE | 2017-04-29 10:27 | POSTANESTH ---
Post Anesthetic Evaluation Cardiovascular Status: Normal, Stable Respiratory Status: Normal, Stable Level of Consciousness/Mental Status: Can Participate in Eval, Mildly Sleepy, Arousable Pain Control: Adequate, Prn Tx Ordered Nausea/Vomiting Control: Adequate, Prn Tx Ordered Complications Possibly Related to Anesthesia: None Noted
--- NOTE | 2017-04-29 10:30 | GIREPORT ---
[facility] Surgical Services - Endoscopy Department Patient Name: Ligia Laura Procedure Date: 04/29/2017 10:00 AM Patient Type: Outpatient Attending MD/ ER Physician: Nito Huynh MD Procedure: Colonoscopy Indications: Hematochezia Providers: Nito Huynh MD Medicines: Propofol per Anesthesia Complications: No immediate complications. Description of Procedure: After obtaining informed consent, the scope was passed under direct vis ion. Throughout the procedure, the patient's blood pressure, pulse, and oxyg en saturations were monitored continuously. The Colonoscope with irrigatio n channel was introduced through the anus and advanced to the cecum, identified by appendiceal orifice and ileocecal valve. The colonoscopy was performed without difficulty. The patient tolerated the procedure well. The quality of the bowel preparation was excellent. The ileocecal valve, appendiceal orifice, and rectum were photographed. Findings: The perianal and digital rectal examinations were normal. Pertinent negatives include normal sphincter tone and no palpable rectal lesions. A 6 mm polyp was found in the distal descending colon. The polyp was sessile. The polyp was removed with a cold snare. Resection and retriev al were complete. The exam was otherwise without abnormality. Estimated Blood Loss: Estimated blood loss: none. Post Op Diagnosis: - One 6 mm polyp in the distal descending colon, removed with a cold sn are. Resected and retrieved. - The examination was otherwise normal. - The cause for her single epsiode of hematochezia is very likely inter nal hemorrhoids. No other source was found. Recommendation: - Await pathology results. - Repeat colonoscopy (date not yet determined) for surveillance based o n pathology results. - Resume previous diet. - Continue present medications. - Discharge patient to home. - Return to GI office as previously scheduled. - Thank you for allowing me to be involved in the care of your patient. Attending Participation: I personally performed the entire procedure without the assistance of a fellow, resident or surg ical community relations assistant. Nito Huynh MD Nito Huynh MD 04/29/2017 10:29:54 AM This report has been signed electronicallyDavid MD Lino Number of Addenda: 0 Note Initiated On: 04/29/2017 10:00 AM Total Procedure Duration Time 0 hours 14 minutes 39 seconds [email or web address]
[2017-04-29 10:39] VITALS: TEMP 97.5
[2017-04-29 11:24] VITALS: BP 96/58; PULSE 62; RESP 14; O2SAT 96
== END 2017-04-29 12:00 | disposition home or self-care (01) ==
LOC: FSGY 07:55
PROVIDERS: ATTEND Internal Medicine Gastroenterology
DX: K64.8 Other hemorrhoids (principal); D12.4 Benign neoplasm of descending colon
CPT/HCPCS: J2250; J2704; J2780

== ENCOUNTER 2017-08-09 08:56 | Inpatient (IN) | payer MEDICAID ==
--- NOTE | 2017-08-09 09:18 | EDPHY ---
H & P Stated Complaint: abd pain Time Seen by Provider: 08/09/17 09:16 HPI/ROS: CHIEF COMPLAINT: Abdominal pain, hematochezia HISTORY OF PRESENT ILLNESS: 52-year-old female history of self-described "chronic stomach issues" followed by Dr. Huynh gastroenterology states that for the past 3 days she has been experiencing intermittent abdominal cramping described as mild however yesterday at noon she had multiple exquisitely painful episodes of abdominal cramping the point where she was crying, diaphoretic in bed in pain and had gross blood per rectum while she was in bed. She then had multiple further episodes of similar not necessarily accompanied with a bowel movement. No pain in the perianal or perirectal region. She currently is experiencing diffuse abdominal pain. No nausea or vomiting. No fever or chills. No trauma. No anticoagulant use. REVIEW OF SYSTEMS: A ten point review of systems was performed and is negative with the exception of the items mentioned in the HPI PAST MEDICAL & SURGICAL HISTORY: History of Dutton's esophagitis. Multiple colonoscopies. SOCIAL HISTORY:Nonsmoker PHYSICAL EXAM (Prior to examination, patient consented to physical exam, hands were washed and my usual and customary physical exam procedures followed) 1) GENERAL: Well-developed, well-nourished, alert and oriented. Appears to be in no acute distress. 2) HEAD: Normocephalic, atraumatic 3) HEENT: Pupils equal, round, reactive to light bilaterally. Sclera anicteric. [Nasopharynx, oropharynx, clear, no lesions dry mucous membranes 4) NECK: Full range of motion, no meningeal signs. 5) LUNGS: Clear auscultation bilaterally, no wheezes, no rhonchi, no retractions. 6) HEART: Regular rate and rhythm, no murmur, no heave, no gallop. 7) ABDOMEN: [No guarding diffusely tender to palpation all quadrants left lower quadrant greater than others however. 8) MUSCULOSKELETAL: Moving all extremities, no focal areas of tenderness, no obvious trauma. No peripheral edema or discoloration. 9) BACK: No CVA tenderness, no midline vertebral tenderness, no fluctuance, no step-off, no obvious trauma, no visual or palpable abnormality. 10) SKIN: No rash, no petechiae. 11) RECTAL (with female music sound light technician Peggy Sky at bedside): No blood in the perianal region or on the skin. Grossly bloody rectal examination without pain DIFFERENTIAL DIAGNOSIS: In no particular order including but not limited to diverticulitis, lower GI bleed, malignancy - Personal History LMP (Females 10-55): Post Menopausal Current Tetanus/Diphtheria Vaccine: Yes Current Tetanus Diphtheria and Acellular Pertussis (TDAP): Yes - Medical/Surgical History Hx Asthma: No Hx Chronic Respiratory Disease: No Hx Diabetes: No Hx Cardiac Disease: Yes Hx Renal Disease: No Hx Cirrhosis: No Hx Alcoholism: No Hx HIV/AIDS: No Hx Splenectomy or Spleen Trauma: No Other PMH: PSH: breast implants; nose sx;. PMH: ADHD,anxiety, migraines, mitral valve prolapse, GERD, pre-Barretts esophagus - Social History Smoking Status: Never smoked Constitutional: Initial Vital Signs Temperature (C) 36.6 C 08/09/17 09:05 Heart Rate 86 08/09/17 09:05 Respiratory Rate 16 08/09/17 09:05 Blood Pressure 165/93 H 08/09/17 09:05 O2 Sat (%) 97 08/09/17 09:05 O2 Delivery Mode Room Air Allergies/Adverse Reactions: Sulfa (Sulfonamide Antibiotics) Allergy (Severe, Verified 02/28/17 11:21) trouble breathing Home Medications: Medication Instructions Recorded Dextroamphetamine/Amphetamine 20 mg PO DAILY 06/01/15 [Adderall Xr 20 mg Capsule] FLUoxetine HCL [Fluoxetine HCl] 40 mg PO DAILY 06/01/15 Sucralfate [Carafate 1gm/10ml Oral 1 gm PO QID PRN 02/28/17 Liquid (*)] Acetaminophen [Tylenol 325mg (*)] 650 mg PO Q4HRS PRN tab 03/01/17 Dextroamphetamine/Amphetamine 5 mg PO DAILY16 PRN 08/09/17 [Adderall 5 mg Tablet] Herbals/Supplements -Info Only 1 ea PO DAILY 08/09/17 Ranitidine HCl [Zantac] 150 mg PO DAILY 08/09/17 Medical Decision Making - Diagnostics Imaging Results: Imaging Impressions Abdomen CT 08/09/17 09:32 Impression: 1. Colitis involving the entire descending colon measuring 13 cm in length probably infectious/inflammatory colitis versus inflammatory bowel disease. Ischemic colitis is less likely given the lack of atherosclerotic abdominal aorta and patent appearing vessels. 2. No drainable abscesses, or pneumoperitoneum. 3. No bowel obstruction. Findings and recommendations discussed with Emergency Department physician, Selena Harper at 1056 hours, 08/09/2017. Final report concurs with initial preliminary interpretation. ED Course/Re-evaluation: 918 a.m.: I reviewed the patient's old medical records including her colonoscopy results dated April 2017 as well as the pathology results. Will proceed with diagnostic testing. Care of patient under supervision of secondary supervising physician Dr Mcclelland with whom I discussed care. 11:00 a.m.: Patient was re-evaluated. Discussed her imaging results showing diffuse colitis of the descending colon. Her pain is controlled however she remains tender on palpation. She is noted to have grossly bloody discharge on exam which continues at home. I recommended admission to the hospital which she is agreeable with. 11:16 a.m.: Consultation with hospitalist Alysa, admit to Dr. Gifford. GI has been paged 11:57 a.m.: Consultation with gastroenterology Dr. De Los Santos who will consult for GI. Recommended stool samples. - Data Points Laboratory Results: Laboratory Results 08/09/17 09:41 08/09/17 09:41 08/09/17 08/09/17 08/09/17 09:57 09:41 09:41 WBC RBC Hgb POC Hgb Hct POC Hct MCV MCH MCHC RDW Plt Count MPV Neut % (Auto) Lymph % (Auto) [place] % (Auto) Eos % (Auto) Baso % (Auto) Nucleat RBC Rel Count Absolute Neuts (auto) Absolute Lymphs (auto) Absolute Monos (auto) Absolute Eos (auto) Absolute Basos (auto) Absolute Nucleated RBC Immature Gran % Immature Gran # POC Sodium Sodium 141 mEq/L mEq/L (135-145) POC Potassium Potassium 4.1 mEq/L mEq/L (3.5-5.2) POC Chloride Chloride 104 mEq/L mEq/L (97-110) Carbon Dioxide 24 mEq/l mEq/l (22-31) Anion Gap 13 mEq/L mEq/L (8-16) POC BUN BUN 12 mg/dL mg/dL (7-23) Creatinine 0.8 mg/dL mg/dL (0.6-1.0) POC Creatinine Estimated GFR > 60 Glucose 97 mg/dL mg/dL (70-100) POC Glucose Calcium 10.2 mg/dL mg/dL (8.5-10.4) Total Bilirubin 0.7 mg/dL mg/dL (0.1-1.4) Conjugated Bilirubin 0.3 mg/dL mg/dL (0.0-0.5) Unconjugated Bilirubin 0.4 mg/dL mg/dL (0.0-1.1) AST 25 IU/L IU/L (14-46) ALT 40 IU/L IU/L (9-52) Alkaline Phosphatase 72 IU/L IU/L (38-126) Total Protein 7.4 g/dL g/dL (6.3-8.2) Albumin 4.2 g/dL g/dL (3.5-5.0) Lipase 67 IU/L IU/L (23-300) Beta HCG, Qual NEGATIVE Stool Occult Bld Scrn POSITIVE H (NEGATIVE) 08/09/17 08/09/17 09:41 09:37 WBC 10.08 10^3/uL H 10^3/uL (3.80-9.50) RBC 4.43 10^6/uL 10^6/uL (4.18-5.33) Hgb 14.2 g/dL g/dL (12.6-16.3) POC Hgb 14.3 gm/dL gm/dL (12.6-16.3) Hct 41.2 % % (38.0-47.0) POC Hct 42 % % (38-47) MCV 93.0 fL fL (81.5-99.8) MCH 32.1 pg pg (27.9-34.1) MCHC 34.5 g/dL g/dL (32.4-36.7) RDW 12.2 % % (11.5-15.2) Plt Count 232 10^3/uL 10^3/uL (150-400) MPV 10.6 fL fL (8.7-11.7) Neut % (Auto) 75.1 % H % (39.3-74.2) Lymph % (Auto) 17.2 % % (15.0-45.0) [place] % (Auto) 7.0 % % (4.5-13.0) Eos % (Auto) 0.1 % L % (0.6-7.6) Baso % (Auto) 0.3 % % (0.3-1.7) Nucleat RBC Rel Count 0.0 % % (0.0-0.2) Absolute Neuts (auto) 7.57 10^3/uL H 10^3/uL (1.70-6.50) Absolute Lymphs (auto) 1.73 10^3/uL 10^3/uL (1.00-3.00) Absolute Monos (auto) 0.71 10^3/uL 10^3/uL (0.30-0.80) Absolute Eos (auto) 0.01 10^3/uL L 10^3/uL (0.03-0.40) Absolute Basos (auto) 0.03 10^3/uL 10^3/uL (0.02-0.10) Absolute Nucleated RBC 0.00 10^3/uL 10^3/uL (0-0.01) Immature Gran % 0.3 % % (0.0-1.1) Immature Gran # 0.03 10^3/uL 10^3/uL (0.00-0.10) POC Sodium 140 mEq/L mEq/L (135-145) Sodium POC Potassium 3.9 mEq/L mEq/L (3.3-5.0) Potassium POC Chloride 103 mEq/L mEq/L (97-110) Chloride Carbon Dioxide Anion Gap POC BUN 12 mg/dL mg/dL (7-23) BUN Creatinine POC Creatinine 0.8 mg/dL mg/dL (0.6-1.0) Estimated GFR Glucose POC Glucose 103 mg/dL H mg/dL (70-100) Calcium Total Bilirubin Conjugated Bilirubin Unconjugated Bilirubin AST ALT Alkaline Phosphatase Total Protein Albumin Lipase Beta HCG, Qual Stool Occult Bld Scrn Medications Given: Discontinued Medications Fentanyl (Sublimaze) 100 mcg IVP EDNOW ONE Stop: 08/09/17 10:21 Last Admin: 08/09/17 10:25 Dose: 100 mcg Sodium Chloride (Ns) 1,000 mls @ 0 mls/hr IV EDNOW ONE; Wide Open PRN Reason: Protocol Stop: 08/09/17 09:33 Last Admin: 08/09/17 09:51 Dose: 1,000 mls Ondansetron HCl (Zofran) 4 mg IVP EDNOW ONE Stop: 08/09/17 10:21 Last Admin: 08/09/17 10:25 Dose: 4 mg Point of Care Test Results: 08/09/17 09:37 POC Sodium 140 POC Potassium 3.9 POC Chloride 103 POC BUN 12 POC Creatinine 0.8 POC Glucose 103 H Departure - Departure
[2017-08-09] MEDS ORDERED: NS 1,000 ML IV ONE (09:32)
[2017-08-09 09:54] LABS: PLATELET COUNT 232 10^3/uL (150-400)
[2017-08-09] MEDS ORDERED: IOPAMIDOL (ISOVUE-300) 100 ML BTL ONE (10:11)
[2017-08-09] MEDS ORDERED: ONDANSETRON 4 MG/2 ML VIAL IVP ONE (10:20)
[2017-08-09] MEDS ORDERED: fentaNYL 100 MCG/2 ML INJ IVP ONE ×2 (10:20→11:43)
[2017-08-09] MEDS ORDERED: PROMETHAZINE HCL 25 MG/ML INJ IVP PRN (11:30)
[2017-08-09] MEDS ORDERED: HYDROmorphONE/DILAUDID 2 MG TAB PO PRN (11:30)
[2017-08-09] MEDS ORDERED: ONDANSETRON DISINTEGRATING 4 MG TAB PO PRN (11:30)
[2017-08-09] MEDS ORDERED: HYDROmorphONE/DILAUDID 1 MG/ML INJ IVP PRN (11:30)
[2017-08-09] MEDS ORDERED: ONDANSETRON 4 MG/2 ML VIAL IVP PRN (11:30)
[2017-08-09] MEDS ORDERED: D5W 1/2 NS 1,000 ML IV SCH (11:30)
[2017-08-09] MEDS ORDERED: PROMETHAZINE HCL 25 MG TAB PO PRN (11:30)
[2017-08-09] MEDS ORDERED: LR 1,000 ML IV ONE ×2 (12:48→15:46)
[2017-08-09] MEDS ORDERED: ADDERALL 10 MG TAB PO PRN (13:24)
[2017-08-09] MEDS ORDERED: SUCRALFATE 1 GM/10 ML UDCUP PO PRN (13:24)
--- NOTE | 2017-08-09 13:28 | PDGENHP ---
History and Physical - Chief Complaint Acute abdominal pain - History of Present Illness Primary care provider: Dr. Jarrett Primary coordinator cardiopulmonary services: Dr. Nito Huynh HPI: 52-year-old female presenting with acute abdominal pain characterized as cramping with associated diaphoresis and hematochezia, onset of symptoms was approximately 3 days ago and duration has been intermittent thereafter. On the day prior to this presentation, the patient experienced acute, severe worsening , resulting in diaphoresis, lightheadedness, requiring assistance to transfer by her , and she has remained mostly bed-bound since that time. She has attempted bowel rest without particular benefit. She has noted that the fentanyl received in the emergency department did alleviate her symptoms. Prior to the onset of symptoms, she had otherwise been feeling well and not been experiencing any GI symptoms. She has been adherent to her home medications. History Information - Allergies/Home Medication List Allergies/Adverse Reactions: Sulfa (Sulfonamide Antibiotics) Allergy (Severe, Verified 02/28/17 11:21) trouble breathing Home Medications: Dextroamphetamine/Amphetamine [Adderall Xr 20 mg Capsule] 20 mg PO DAILY [Last Taken 08/08/17] FLUoxetine HCL [Fluoxetine HCl] 40 mg PO DAILY 06/01/15 [Last Taken 08/08/17] Sucralfate [Carafate 1gm/10ml Oral Liquid (*)] 1 gm PO QID PRN 02/28/17 [Last Taken 08/08/17] Dextroamphetamine/Amphetamine [Adderall 5 mg Tablet] 5 mg PO DAILY16 PRN [Last Taken Unknown] Herbals/Supplements -Info Only 1 ea PO DAILY 08/09/17 [Last Taken Unknown] Ranitidine HCl [Zantac] 150 mg PO DAILY 08/09/17 [Last Taken 08/06/17] I have personally reviewed and updated: family history, medical history, social history, surgical history - Past Medical History GERD (With Dutton's are pre Dutton's esophagus), hyperlipidemia Additional medical history: Episode approximately 2 years ago when the patient had syncope the setting of severe pain from was also described as reflux, she underwent a negative stress test at that time. Dutton's esophagus with strict ulceration February of 2017. Attention deficit hyperactivity disorder. Anxiety. Mitral valve prolapse. Colonic polyp. Internal hemorrhoids - Surgical History Additional surgical history: Colonoscopy/Upper endoscopy 3 months ago demonstrating internal hemorrhoids, polyp, normal upper endoscopy. Breast augmentation surgery - Family History Additional family history: Mother with ovarian cancer, father with lung cancer, grandparent with esophageal cancer - Social History Smoking Status: Never smoked Additional social history: Likes to drink coffee, active person, no recent international travel other than 5 months ago Review of Systems Review of Systems: ROS: 10pt was reviewed & negative except for what was stated in HPI & below Constitutional: Reports: chills, diaphoresis, weakness Gastrointestinal: Reports: blood streaked stools, abdominal pain, nausea Physical Exam Physical Exam: Temp Pulse Resp BP Pulse Ox 36.5 C 62 16 76/41 L 98 08/09/17 12:21 08/09/17 13:02 08/09/17 13:02 08/09/17 13:02 08/09/17 13:02 Constitutional: no apparent distress, appears nourished, uncomfortable, No not in pain (Moderate) Eyes: PERRL, anicteric sclera, EOMI Ears, Nose, Mouth, Throat: moist mucous membranes, hearing normal, ears appear normal, no oral mucosal ulcers Cardiovascular: regular rate and rhythym, systolic murmur (1/6 at the apex), No edema Respiratory: no respiratory distress, no rales or rhonchi, clear to auscultation Gastrointestinal: normoactive bowel sounds, tenderness (Left hemidiaphragm), guarding (Voluntary), No distension Skin: warm, No abrasion, No rash Neurologic: AAOx3, sensation intact bilaterally, No weakness Psychiatric: interacting appropriately, not anxious, not encephalopathic, thought process linear Lab Data & Imaging Review 08/09/17 09:41 08/09/17 09:41 WBC 10.08 10^3/uL (3.80-9.50) H 08/09/17 09:41 RBC 4.43 10^6/uL (4.18-5.33) 08/09/17 09:41 Hgb 14.2 g/dL (12.6-16.3) 08/09/17 09:41 POC Hgb 14.3 gm/dL (12.6-16.3) 08/09/17 09:37 Hct 41.2 % (38.0-47.0) 08/09/17 09:41 POC Hct 42 % (38-47) 08/09/17 09:37 MCV 93.0 fL (81.5-99.8) 08/09/17 09:41 MCH 32.1 pg (27.9-34.1) 08/09/17 09:41 MCHC 34.5 g/dL (32.4-36.7) 08/09/17 09:41 RDW 12.2 % (11.5-15.2) 08/09/17 09:41 Plt Count 232 10^3/uL (150-400) 08/09/17 09:41 MPV 10.6 fL (8.7-11.7) 08/09/17 09:41 Neut % (Auto) 75.1 % (39.3-74.2) H 08/09/17 09:41 Lymph % (Auto) 17.2 % (15.0-45.0) 08/09/17 09:41 [place] % (Auto) 7.0 % (4.5-13.0) 08/09/17 09:41 Eos % (Auto) 0.1 % (0.6-7.6) L 08/09/17 09:41 Baso % (Auto) 0.3 % (0.3-1.7) 08/09/17 09:41 Nucleat RBC Rel Count 0.0 % (0.0-0.2) 08/09/17 09:41 Absolute Neuts (auto) 7.57 10^3/uL (1.70-6.50) H 08/09/17 09:41 Absolute Lymphs (auto) 1.73 10^3/uL (1.00-3.00) 08/09/17 09:41 Absolute Monos (auto) 0.71 10^3/uL (0.30-0.80) 08/09/17 09:41 Absolute Eos (auto) 0.01 10^3/uL (0.03-0.40) L 08/09/17 09:41 Absolute Basos (auto) 0.03 10^3/uL (0.02-0.10) 08/09/17 09:41 Absolute Nucleated RBC 0.00 10^3/uL (0-0.01) 08/09/17 09:41 Immature Gran % 0.3 % (0.0-1.1) 08/09/17 09:41 Immature Gran # 0.03 10^3/uL (0.00-0.10) 08/09/17 09:41 VBG Lactic Acid 1.1 mmol/L (0.7-2.1) 08/09/17 13:05 POC Sodium 140 mEq/L (135-145) 08/09/17 09:37 Sodium 141 mEq/L (135-145) 08/09/17 09:41 POC Potassium 3.9 mEq/L (3.3-5.0) 08/09/17 09:37 Potassium 4.1 mEq/L (3.5-5.2) 08/09/17 09:41 POC Chloride 103 mEq/L (97-110) 08/09/17 09:37 Chloride 104 mEq/L (97-110) 08/09/17 09:41 Carbon Dioxide 24 mEq/l (22-31) 08/09/17 09:41 Anion Gap 13 mEq/L (8-16) 08/09/17 09:41 POC BUN 12 mg/dL (7-23) 08/09/17 09:37 BUN 12 mg/dL (7-23) 08/09/17 09:41 Creatinine 0.8 mg/dL (0.6-1.0) 08/09/17 09:41 POC Creatinine 0.8 mg/dL (0.6-1.0) 08/09/17 09:37 Estimated GFR > 60 08/09/17 09:41 Glucose 97 mg/dL (70-100) 08/09/17 09:41 POC Glucose 103 mg/dL (70-100) H 08/09/17 09:37 Calcium 10.2 mg/dL (8.5-10.4) 08/09/17 09:41 Total Bilirubin 0.7 mg/dL (0.1-1.4) 08/09/17 09:41 Conjugated Bilirubin 0.3 mg/dL (0.0-0.5) 08/09/17 09:41 Unconjugated Bilirubin 0.4 mg/dL (0.0-1.1) 08/09/17 09:41 AST 25 IU/L (14-46) 08/09/17 09:41 ALT 40 IU/L (9-52) 08/09/17 09:41 Alkaline Phosphatase 72 IU/L (38-126) 08/09/17 09:41 Total Protein 7.4 g/dL (6.3-8.2) 08/09/17 09:41 Albumin 4.2 g/dL (3.5-5.0) 08/09/17 09:41 Lipase 67 IU/L (23-300) 08/09/17 09:41 Beta HCG, Qual NEGATIVE 08/09/17 09:41 Stool Occult Bld Scrn POSITIVE (NEGATIVE) H 08/09/17 09:57 Visualized and Interpreted imaging results: Yes Interpretation: CT of the abdomen demonstrating descending colitis with normal vasculature, no obstruction, no abscess Assessment & Plan Assessment: Assessment: 52-year-old female presents acute colitis resulting in severe abdominal pain and hematochezia Plan: 1. Colitis. Acute, new problem this provider, further workup indicated. Most likely infectious, less likely inflammatory bowel disease as she had a normal colonoscopy approximately 3 months ago and has not had episodes in the past -get GI pathogen PCR -monitor white blood cell count -counseled patient and her extensively regarding treatment of infectious etiologies, antibiotics will be held time at their request -if the patient's clinical condition worsens, she becomes more hypotensive, developed a fever, would recommend dosing IV ertapenem or Cipro Flagyl -continue supportive care with IV fluids, antiemetics, pain medications 2. Hypotension. Acute, most likely iatrogenic in the setting of recent pain medication administration, lactic acid currently normal, heart rate normal -monitor closely, bolusing 1 L lactated Ringer's and then LR 150 an hour thereafter given the patient is most likely hypovolemic -patient does not currently require SDU or pressors 3. History of Dutton's esophagus. Reviewed outside records including [address] Mckayla Mendoza, recounting the patient's most recent hospitalization for Dutton's esophagus/gastric ulceration, requiring PPI , H2 shawn, Ultram 4. Attention deficit hyperactivity disorder and anxiety. Continue home medications, dose as needed Ativan if patient becomes anxious Diet. Clear, advance as tolerates Prophylaxis. Low risk patient, SCDs Code. Full Disposition. Anticipated discharge is uncertain this time, anticipated length stay is greater than 48 hr for reasonable medical necessity including acute colitis requiring IV fluids, IV antiemetics and pain medications with high risk comorbid acute hypotension requiring close monitoring. Discussed with Dr. Rudy De Los Santos from Gastroenterology, he has recommended holding off on flex sig at this time, will reconsider this position of the patient's condition does not improve and biopsy is required.
[2017-08-09] MEDS: LR 1,000 ML IV SCH (14:40)
[2017-08-09] MEDS ORDERED: HYDROmorphONE/DILAUDID 2 MG/ML INJ IVP PRN (14:48)
--- NOTE | 2017-08-09 14:50 | PDMN ---
Medical Necessity Medical necessity: est los>2mn for acute colitis, requiring IVF, IV antiemetics , and pain medications with high risk comorbid acute hypotension requiring close monitoring; hx GERD/Declan's esophagus, hld, ADHD, MV prolapse; per order and H&P 08/09/17
[2017-08-09] MEDS: ERTAPENEM 1 GM VIAL IV SCH (17:26)
[2017-08-09] MEDS: ACETAMINOPHEN 325 MG TAB PO PRN (17:51)
[2017-08-09] MEDS: FLUOXETINE HCL 40 MG PO SCH (20:05)
[2017-08-09] MEDS: FAMOTIDINE 20 MG TAB PO SCH (20:05)
[2017-08-10] MEDS: LR 1,000 ML IV SCH (05:06)
[2017-08-10 05:15] LABS: PLATELET COUNT 177 10^3/uL (150-400)
[2017-08-10 05:24] LABS: INR 1.16 (0.83-1.16)
[2017-08-10] MEDS: ERTAPENEM 1 GM VIAL IV SCH (08:55)
[2017-08-10] MEDS: Dextroamphetamine/Amphetamine [Adderall Xr 20 Mg Capsule] 20 MG) PO SCH (08:55)
[2017-08-10] MEDS: FAMOTIDINE 20 MG TAB PO SCH ×2 (08:56→22:18)
[2017-08-10] MEDS ORDERED: FLUoxetine 20 MG CAP PO SCH (09:00)
[2017-08-10] MEDS ORDERED: Herbals/Supplements -Info Only PO SCH (09:00)
[2017-08-10] MEDS ORDERED: COSYNTROPIN 0.25 MG/2 ML SYRINGE IVP ONE (09:02)
--- NOTE | 2017-08-10 09:23 | GCON ---
[f rep st] CONSULTATION DATE OF CONSULTATION: 08/09/2017 CONSULTING PHYSICIAN: Jeffery Gifford MD REASON FOR CONSULTATION: Colitis. CHIEF COMPLAINT: Abdominal pain/bright red blood per rectum. HISTORY OF PRESENT ILLNESS: The patient is a 52-year-old female who presents to [facility] with complaints of abdominal pain, as well as hematochezia. She was in her normal state of health until approximately 3 days ago when she started to experience intermittent abdominal pain. She describes the pain as a crampy sensation mainly in the lower quadrants of her abdomen. A day prior to admission, she started to experience increasing abdominal pain and has had multiple episodes of hematochezia. The pain encompassed her whole abdomen with no alleviating or exacerbating factors. She had multiple bowel movements, which she thinks was just mainly blood. The patient denies any recent travel or sick contacts. She had a CT scan which showed colitis in her descending colon. She did have a colonoscopy performed on 04/29/2017 where she was found to have a 6 mm polyp in the distal descending colon, which was a fibroblastic polyp. I am being asked to see the patient in consultation by Dr. Gifford regarding her blood in stools/abnormal imaging. PAST MEDICAL HISTORY: 1. Gastroesophageal reflux disease. 2. Dutton esophagus. 3. Hyperlipidemia. 4. Mitral valve prolapse. 5. Anxiety. 6. Attention deficit disorder. PAST SURGICAL HISTORY: 1. Breast augmentation surgery. ALLERGIES: Sulfa. MEDICATIONS: Adderall, fluoxetine sucralfate, ranitidine. SOCIAL HISTORY: Single. Two children. FAMILY HISTORY: Mother with ovarian cancer. Father with lung cancer. REVIEW OF SYSTEMS: A 12-point comprehensive review of systems was asked. Pertinent positives and negatives per HPI. PHYSICAL EXAMINATION: VITAL SIGNS: Temperature 36.5, pulse 92, respirations 16 , blood pressure 76/41. GENERAL: Awake, alert, oriented x3. In no distress. HEENT: Anicteric sclerae. Moist mucosa. NECK: No JVD. CARDIOVASCULAR: Regular rate and rhythm. Positive S1, S2. No gallops appreciated. LUNGS: Clear to auscultation bilaterally with no rales, rhonchi. ABDOMEN: Soft, nondistended. Positive tenderness to palpation especially in the left lower quadrant. No guarding. No rebound. Positive bowel sounds. EXTREMITIES: No clubbing, cyanosis , edema. NEUROLOGIC: Cranial nerves 2 through 12 grossly intact. PSYCH: Normal affect. MUSCULAR: No obvious joint effusions. LABORATORY DATA: WBC 10.08, hemoglobin 14.2, hematocrit 232. Sodium 141, potassium 3.9, chloride 104, BUN 12, creatinine 0.8. AST 25, ALT 40, alkaline phosphatase 72, albumin 4.2. Beta HCG negative. CT scan-colitis involving the descending colon. ASSESSMENT AND PLAN: 1. Abdominal pain- especially in the left lower quadrant with hematochezia. CT scan shows inflammation of the descending colon. Etiology ? infectious versus ischemic versus other? Due to the location, have to be suspicious of ischemic colitis. She has had a recent colonoscopy, which was negative. At this time, I recommend to obtain stool studies to rule out an infectious cause. Would consider antibiotics depending on the results of the stool studies. If no cause found and not improving, would consider a flexible sigmoidoscopy with biopsies for further evaluation. Risks, benefits, and alternatives were discussed with her. I do have a low suspicion that it is inflammatory bowel disease due to a recent colonoscopic evaluation and acute onset. . 2. Attention deficit disorder. 3. Gastroesophageal reflux disease. 4. Dutton esophagus. 5. Hyperlipidemia. /[id number]/MODL MTDD
--- NOTE | 2017-08-10 10:38 | ASMTCASEMG ---
Living Arrangements What is your living Answers: With Spouse arrangement? Who do you live with? Type Of Residence What kind of residence do Answers: Hospice you live in? Discharge Plan Comments Coordination Status Comments Notes: Pt is a 52 y/o female admitted for colitis and hematochezia. PT has been ordered and awaiting recommendations. Needs are TBD at this time. CM to follow. Plan: TBD Date Signed: 08/10/2017 10:38 AM Electronically Signed By:YUMIKO Hernández
[2017-08-10] MEDS: ACETAMINOPHEN 325 MG TAB PO PRN (11:19)
[2017-08-10] MEDS ORDERED: ACET/CAFFEINE/BUTA FIORICET 1 EACH TAB PO PRN (12:39)
[2017-08-10] MEDS ORDERED: ACETAMINOPHEN 325 MG TAB PO PRN (12:40)
--- NOTE | 2017-08-10 19:24 | HOSPPROG ---
Hospitalist Progress Note Assessment/Plan: Assessment: Assessment: 52-year-old female presents acute colitis resulting in severe abdominal pain and hematochezia Plan: 1. Colitis. Acute, either infectious or ischemic (from low BPs), less likely inflammatory bowel disease as she had a normal colonoscopy approximately 3 months ago and has not had episodes in the past -counseled patient regarding supportive care tx w/ IVF, pain/anti-emetics/abx (D #2) for possible bacterial infectious etiology, have yet to obtain stool PCR given that she has passed blood but not overt stool -after our encounter, I followed up w/ Dr. De Los Santos to report ongoing hematochezia, and, after his review of the CT, he feels that this segment may be more ischemic in setting of possibly preceding hypotension, and supportive care continues to be the recommendation -Dr. De Los Santos will cont to consult, if worsening, he will offer flex sig 2. Hypotension and possible adrenal insufficiency. Acute, low AM cortisol and positive stim test, in the setting of hypotension, which may have preceded this presentation and contributed to bowel ischemia, if that is the cause -lactic levels consistently normal, so not currently hypoperfusing -cont to trend -cont IVF -if lactics positive or symptomatically hypotensive (check orthos if persists), then rec starting hydrocortisone -discussed possibility of adrenal insufficiency w/ patient, and recommend outpt eval by endocrine after acute episode resolves, contact info in DC tab 3. History of Dutton's esophagus. Cont PPI 4. Attention deficit hyperactivity disorder and anxiety. Continue home medications, dose as needed Ativan if patient becomes anxious 5. Headache. Pervasive, PRN tylenol or fiocet, avoid NSAIDs given hematochezia Diet. As daya, currently patient is electively on bowel rest given poor PO tolerance Prophylaxis. Low risk patient, SCDs Code. Full Disposition. Anticipated discharge is uncertain this time, cont to reassess daily, remains clinically unresolved Subjective: hematochezia this AM, ongoing headache Objective: Vital Signs Temp Pulse Resp BP Pulse Ox 36.9 C 72 18 102/71 94 08/10/17 16:00 08/10/17 16:00 08/10/17 16:00 08/10/17 16:00 08/10/17 16:00 Laboratory Results 08/10/17 04:58 08/10/17 04:58 02/08/10/17 08/11/17 05:59 05:59 05:59 Intake Total 3661 750 Balance 3661 750 PT 15.0 SEC (12.0-15.0) 08/10/17 04:58 INR 1.16 (0.83-1.16) 08/10/17 04:58 - Time Spent With Patient Time Spent with Patient: greater than 35 minutes Time Spent with Patient: Greater than 35 minutes spent on this patients care, greater than 50% of time spent counseling, educating, and coordinating care regarding the above mentioned plan. - Physical Exam Constitutional: uncomfortable, No not in pain (moderate) Cardiovascular: regular rate and rhythym, no murmur, rub, or gallop, No edema Respiratory: no respiratory distress, no rales or rhonchi, clear to auscultation Gastrointestinal: normoactive bowel sounds, tenderness (LLQ), guarding ( voluntary LLQ), No distension Skin: No rash Neurologic: AAOx3 Psychiatric: not encephalopathic, anxious, No agitated ICD10 Worksheet Patient Problems: Problems Problem Status Onset Chest pain Acute Substernal pain Acute
--- NOTE | 2017-08-10 19:36 | SOAPPROG ---
SOAP Progress Note Assessment/Plan: Assessment: Plan: 08/10/17 19:32 A/P 1. Colitis- descending colon inflammation on CT. Etiology? Ischemic versus infectious versus other? Due to acute onset and recent normal colonoscopy suspect that this is self limited colitis. Appears to be significantly improved from yesterday,. Continue supportive care. If continues to improve, would consider increasing diet. Discharge soon if continues to improve? Subjective: cc: Follow up colitis Clinically improving. BMs significant decreased. Objective: Vital Signs Temp Pulse Resp BP Pulse Ox 36.9 C 72 18 102/71 94 08/10/17 16:00 08/10/17 16:00 08/10/17 16:00 08/10/17 16:00 08/10/17 16:00 Laboratory Results 08/10/17 04:58 08/10/17 04:58 08/09/17 08/10/17 08/11/17 05:59 05:59 05:59 Intake Total 3661 750 Balance 3661 750 PT 15.0 SEC (12.0-15.0) 08/10/17 04:58 INR 1.16 (0.83-1.16) 08/10/17 04:58 Physical Exam - Physical Exam General Appearance: alert, no apparent distress EENT: No scleral icterus (R), No scleral icterus (L) Respiratory: lungs clear, normal breath sounds, No crackles, No rales, No rhonchi Abdomen: soft, No non-tender (tender especially in LLQ), No distended, No guarding, No rebound, No hepatomegaly, No splenomegaly Skin: normal color, cyanosis Neuro/Psych: alert, normal mood/affect, oriented x 3 ICD10 Worksheet Patient Problems: Problems Problem Status Onset Chest pain Acute Substernal pain Acute
[2017-08-10] MEDS: FLUOXETINE HCL 40 MG PO SCH (22:18)
[2017-08-11 05:25] LABS: PLATELET COUNT 202 10^3/uL (150-400)
[2017-08-11 07:16] VITALS: BP 99/43; PULSE 63; RESP 16; O2SAT 96
[2017-08-11 07:39] VITALS: TEMP 98.5
--- NOTE | 2017-08-11 07:56 | SOAPPROG ---
S[facility]A Progress Note Assessment/Plan: Assessment: Plan: 08/10/17 19:32 A/P 1. Colitis- descending colon inflammation on CT. Etiology? Ischemic versus infectious versus other? Due to acute onset and recent normal colonoscopy suspect that this is self limited colitis. Appears to be significantly improved from yesterday,. Continue supportive care. If continues to improve, would consider increasing diet. Discharge soon if continues to improve? 08/11/17 07:53 A/P 1. Colitis- descending colon. Suspect ischemia due to rapid clinical improvement, location of colitis, clinical picture etc. Did have recent colonoscopy in 04/2017. From GI perspective, ok to discharge. Will f/u in office soon. GI will sign off. Thank you for the consultation! Subjective: cc: Follow up colitis No recent BM. Abdominal pain improved. Objective: Vital Signs Temp Pulse Resp BP Pulse Ox 36.9 C 63 16 99/43 L 96 08/11/17 07:39 08/11/17 07:13 08/11/17 07:13 08/11/17 07:13 08/11/17 07:13 Laboratory Results 08/11/17 04:59 08/11/17 04:59 08/10/17 08/11/17 03 05:59 05:59 05:59 Intake Total 3661 750 Balance 3661 750 PT 15.0 SEC (12.0-15.0) 08/10/17 04:58 INR 1.16 (0.83-1.16) 08/10/17 04:58 Physical Exam - Physical Exam General Appearance: alert, no apparent distress EENT: No scleral icterus (R), No scleral icterus (L) Respiratory: lungs clear, normal breath sounds Cardiac/Chest: regular rate, rhythm, No bradycardia, No tachycardia, No diastolic murmur, No systolic murmur Abdomen: normal bowel sounds (tender surjit LLQ), soft, No non-tender, No guarding , No rebound Skin: normal color, warm/dry Neuro/Psych: no motor/sensory deficits, alert, No abnormal section gang II-XII ICD10 Worksheet Patient Problems: Problems Problem Status Onset Chest pain Acute Substernal pain Acute
[2017-08-11] MEDS: FAMOTIDINE 20 MG TAB PO SCH (08:48)
[2017-08-11] MEDS: ERTAPENEM 1 GM VIAL IV SCH (08:48)
[2017-08-11] MEDS: Dextroamphetamine/Amphetamine [Adderall Xr 20 Mg Capsule] 20 MG) PO SCH (09:54)
[2017-08-11] MEDS ORDERED: DOCUSATE SODIUM 100 MG CAP PO SCH (11:00)
[2017-08-11] MEDS: SIMETHICONE 80 MG TAB CHEW PO SCH ×2 (11:10→13:31)
--- NOTE | 2017-08-11 16:35 | ASMTCMCOM ---
CM Note CM Note Notes: Pt is determined to be at baseline, PT/OT discussed with RN. Anticipate will dc home w/support of when medically stable. CM available for any changes. DC Plan: Independent Date Signed: 08/11/2017 04:34 PM Electronically Signed By:Urvashi Gutiérrez RN
--- NOTE | 2017-08-11 19:35 | PDDCSUM ---
Discharge Summary Discharge Summary: DISCHARGE DIAGNOSES: -acute colitis, suspect ischemic -history of dyspepsia and heartburn currently adequately treated on acid reduction -acute dehydration -transient hypotension -attention deficit disorder CONSULTANTS: Dr. De Los Santos PROCEDURES: CT scan of abdomen HOSPITAL COURSE SUMMARY: This patient came into the hospital with acute abdominal pain, lower location, with rectal bleeding. She had no fever but elevated white blood cell count and a CT scan showing evidence of descending colitis. There is no diarrhea. She did not have nausea or vomiting but she had not been eating well. This is the 1st ever such episode for this patient. She had not traveled anywhere that would expose her to infections. No family history of autoimmune illness of concern. She has no use of nonsteroidal anti-inflammatory medicines. The patient was admitted and treated with hydration, antibiotics, pain medicines. Her symptoms actually improved fairly quickly. She was felt to most likely have ischemic colitis as a cause of this. She had had a colonoscopy that was unremarkable about 2-3 months prior to this admission. It was elected not to do colonoscopy at this time during her acute illness. We were unable to get an actual stool sample from her here to test for any infectious etiology. At this point she is eating a mild diet and tolerating that recently the flea well albeit with some pain. She continues to not have any fever. There is no evidence of involvement of any extra colonic tissues in this illness. The patient at this point is stable for discharge to home. It is strongly recommended that she have a bland diet of mostly clear liquids and simple starches, and eat very slowly. She can gradually increase the amount of food in types of food that she eats as her syndrome resolved. She will be treated with ongoing antibiotics for presumed ischemic colitis. She understands that it is possible that there could be some infection or other illness that we are not diagnose in here and that if her syndrome does not resolve we may need to do further diagnostic testing. She also understands that she should follow up without fail at [facility] as planned to check on her progress and be sure there is no other diagnostic workup or therapy that needs to be added. She knows to keep very well hydrated. PENDING TEST RESULTS: None MEDICATION CHANGES: Levaquin and Flagyl for 5 days after discharge FOLLOW-UP PLAN: Follow up at [facility] in 1 week Greater than 35 minutes bedside and care coordination time today
== END 2017-08-11 14:02 | disposition home or self-care (01) | DRG 395 ==
LOC: OBSVTOIN 11:30 → FLD 12:34 → F3E 14:25
PROVIDERS: ADMIT Internal Medicine; ATTEND Internal Medicine
DX: K55.039 Acute (reversible) ischemia of large intestine, extent unspecified (principal); I95.9 Hypotension, unspecified; E86.0 Dehydration; R51 Headache; K22.70 Barrett's esophagus without dysplasia; K21.9 Gastro-esophageal reflux disease without esophagitis; E78.5 Hyperlipidemia, unspecified; I34.1 Nonrheumatic mitral (valve) prolapse; Z86.010 Personal history of colon polyps
CPT/HCPCS: 82947-QW; 86304-90; J0834; J1170; J1335; J2405; J2550; J3010; Q9967

== ENCOUNTER 2017-12-04 10:55 | Emergency (ER) | payer MEDICAID ==
[2017-12-04 11:11] VITALS: BP 104/48
--- NOTE | 2017-12-04 11:21 | EDPHY ---
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 Nothing is known about the needle owners health. Patient brought in, it appears to be consistent with needle used with insulin pen. No visible blood. REVIEW OF SYSTEMS: Otherwise feels healthy PAST MEDICAL HISTORY: Negative for HIV or hepatitis. Never been vaccinated for hepatitis-B. Includes breast implant, migraines, attention deficit hyperactivity disorder. Mitral valve prolapse and GERD. Social history: Nonsmoker General Appearance: Alert and conversant, cooperative. Patient's right 4th toe examined, does not have active bleeding and no redness or swelling. Emergency Department course/MDM: Discussed with Zo at 1128; recommends no action at this time; no testing or medication in the ED. Office follow-up if the patient would like, recommendations discussed with the patient. Smoking Status: Never smoked Constitutional: Initial Vital Signs Temperature (C) 36.9 C 12/04/17 11:10 Heart Rate 70 12/04/17 11:10 Respiratory Rate 18 12/04/17 11:10 Blood Pressure 104/48 L 12/04/17 11:10 O2 Sat (%) 98 12/04/17 11:10 O2 Delivery Mode Room Air Allergies/Adverse Reactions: Sulfa (Sulfonamide Antibiotics) Allergy (Severe, Verified 12/04/17 11:11) trouble breathing Home Medications: Medication Instructions Recorded Dextroamphetamine/Amphetamine 20 mg PO DAILY 06/01/15 [Adderall Xr 20 mg Capsule] Acetaminophen [Tylenol 325mg (*)] 650 mg PO Q4HRS PRN tab 03/01/17 Dextroamphetamine/Amphetamine 5 mg PO DAILY16 PRN 08/09/17 [Adderall 5 mg Tablet] FLUoxetine HCL [Fluoxetine HCl] 40 mg PO HS 08/09/17 Herbals/Supplements -Info Only 1 ea PO DAILY 08/09/17 Ranitidine HCl [Zantac] 150 mg PO DAILY 08/09/17 MDM/Departure - Depart Disposition: Home, Routine, Self-Care Clinical Impression: needle stick accidental Condition: Good Instructions: Needle Stick Injuries (ED) Referrals: PRASHANTH BOYLE MD [Other] - As per Instructions Lisa Pathak MD [Medical Doctor] - As per Instructions (Please follow-up with Dr. Pathak office this week if you have further questions. The emergency physician discussed the case with her and she recommended no further action at this time, but will be happy to see you in the office if you have further questions.)
== END 2017-12-04 11:34 | disposition home or self-care (01) ==
LOC: CED 10:55
DX: S91.135A Puncture wound without foreign body of left lesser toe(s) without damage to nail, initial encounter (principal); W46.1XXA Contact with contaminated hypodermic needle, initial encounter; Y99.8 Other external cause status; Y93.89 Activity, other specified

== ENCOUNTER 2018-07-29 19:35 | Emergency (ER) | payer MEDICAID ==
--- NOTE | 2018-07-29 20:05 | EDPHY ---
General Time Seen by Provider: 07/29/18 20:05 Narrative: CLINICAL IMPRESSION: Syncopal episode, chest pain, left ankle and foot pain ASSESSMENT/PLAN: Patient is a 53-year-old female with a significant medical history of vasovagal syncope, Dutton's esophagitis, ADD and Asperger's who presents to the emergency department with multiple complaints including left ankle and foot pain after sustaining a mechanical fall as well as 2 syncopal episodes with a brief episode of chest pain that occurred last evening. Patient is afebrile and nontoxic appearing, in no acute distress on arrival. Vital signs reviewed and remained stable, patient remained on hospital monitor and was observed for a period of time. ECG with no evidence if bradycardia, sinus pause, SVT or other conduction defect- reviewed by myself and Dr. Rdz. Troponin undetectable. In regards to her ankle pain she sustained after mechanical fall, the ankle and foot x-ray were both negative. There was no evidence of acute fracture, dislocation, joint instability, compartment syndrome or neurovascular compromise. The patient was placed in a Adams boot and will continue using her crutches as needed. She will continue x-rays showing Tylenol as needed for pain. In regards to her 2 syncopal episodes and brief report of chest pain, her ECG revealed no evidence of acute ischemia and troponin was undetectable. Her pain was very atypical for ACS. The patient has a longstanding history of multiple vasovagal syncopal episodes which she feels is exactly what happened last evening secondary to her pain. Patient also consumed narcotic and edibles, suspect this also contributed. There were no findings to suggest bacterial illness, vascular disease, CHF, arrhythmia (WPW, Bruggada Syndrome, prolonged QT , ventricular arrhythmia, SVT, bradyarrhythmia, or cardiac outflow obstruction- no murmur and not exertional in nature). There were no red flag symptoms, specifically, not exertional onset, no dyspnea, low back pain, palpitations, severe headache, focal neurologic deficits, diplopia, ataxia, or dysarthria. I have a low clinical suspicion for other central nervous system etiology. I recommended she avoid taking narcotic and edibles at the same time. On re-examination patient with grossly normal neurological exam, able to ambulate with crushes, no additional complaints. Patient is well established with her PCP and will schedule a follow-up appointment. An orthopedic referral was also provided should her symptoms not improve. Strict return precautions discussed- patient will return for recurrent syncope, headache, dizziness, chest pain, shortness of breath, abdominal pain or for any other concerning symptom. Patient verbalizes understanding and is in agreement with this plan. Etiology of syncope including but not limited to vasovagal syncope, arrhythmia, dehydration, and blood loss. DIFFERENTIAL DX: Chest pain including but not limited to myocardial ischemia, pulmonary embolus, chest wall pain, pleural inflammation and pulmonary infectious causes. Ankle pain differential including but not limited to sprain, contusion, fracture and dislocation ED COURSE: 2020: Case discussed with Dr. Rdz CHIEF COMPLAINT: Syncopal episode, chest pain, left foot and ankle pain HPI: Patient is a 53-year-old female with a significant history of Dutton's esophagitis, vasovagal syncope, ADD and Asperger's who presents to the emergency department after sustaining a mechanical fall yesterday complaining of left ankle and foot pain. Patient reports yesterday morning she was walking down with stairs with 4 in heels, she lost her balance causing her to slide down approximately 6 stairs. She is not sure if she rolled her ankle or if she hit her foot and ankle on something during her fall. She did not hit her head, there was no loss of consciousness. She denies any neck or back pain. Patient has been able to ambulate since however her pain has been significantly increasing and she is unable to ambulate at this time. Patient rested in the afternoon, took a hydrocodone prior to going to bed. She woke up at 1:30 a.m. In the morning with severe pain, got up to go to the bathroom when she experienced a syncopal episode. When she came to she was experiencing some mid chest pain that lasted a brief period of time with associated diaphoresis. She denies any radiation of the pain. Patient took some additional Tylenol as well as an edible and went back to bed. When she woke up she had another syncopal episode which was witnessed. Both syncopal episode were Witness, she did not hit her head either event. She denies any headache or dizziness. She has had no visual loss or visual changes. She states that it is very typical for her to have vasovagal episodes even in response to pain. Patient denies any chest pain at this time, also denies any nausea, vomiting or abdominal pain. PMH: Dutton's esophagitis, vasovagal syncope, ADD and Asperger's Family History: Noncontributory Social History: Marijuana, denies illicit drug use REVIEW OF SYSTEMS: All other systems negative Constitutional: No fever, no chills, appetite change. Eyes: No discharge, vision change ENT: No sore throat, congestion, ear pain. Cardiovascular: Chest pain No no palpitations. Respiratory: No cough, no shortness of breath. Gastrointestinal: No abdominal pain, no vomiting, diarrhea. Genitourinary: No hematuria, dysuria, flank pain, pelvic pain Musculoskeletal: Left ankle and foot pain. No back pain, joint swelling, myalgias. Skin: No rashes, color change. Neurological: Syncopal episode x2. No headache, dizziness, weakness. PHYSICAL EXAM: General Appearance: Patient is well-appearing and in no acute distress. HENT: Normocephalic, atraumatic. Bilateral external ears are normal. Bilateral tympanic membranes are normal with pearly carlton reflex. Nares are clear, mucosa is pink. Oropharynx is clear, uvula is midline. There is no tonsillar enlargement or exudate. The dentition is normal. Eyes: PERRLA, EOMI intact. Conjunctiva pink, no pallor or injection. Neck: Supple, nontender, no lymphadenopathy, no midline pain, FROM, no meningismus. Respiratory: There are no retractions, lungs are clear to auscultation. Cardiac: Regular rate and rhythm, no murmurs or gallops. Gastrointestinal: Abdomen is soft, nontender, bowel sounds normal, no masses/ hernia, no rigidity, guarding or focal peritoneal findings. Neurological: Alert and oriented x 3, CN 2-12 grossly intact, normal gait with crutches, no ataxia, DTR's intact, normal sensation and strength Skin: Warm, dry, no rashes, no nodules on palpation. Upper Extremities: Intact distal pulses, Full range of motion intact, no tenderness, no ecchymosis or edema Lower Extremities: Left knee is nontender with full range of motion, there is no fibular head tenderness to palpation. Left ankle with generalized tenderness to palpation inferior to the lateral malleolus. There is no base of the 5th metatarsal pain, no 1st webspace pain. She is mildly tender along the medial malleolus. There is no edema or ecchymosis. Intact distal pulses, No edema, No tenderness, No cyanosis, full range of motion intact, No calf tenderness bilaterally. Psychiatric: Patient is oriented X 3, there is no agitation. MEDICAL DECISION MAKING: Patient was seen independently. Secondary supervising physician at time of evaluation was Dr. Rdz, he did not evaluate this patient. Diagnosis: Syncope, chest pain, left ankle and foot pain. New, requires workup Summary: See Assessment and Plan for summary of ED visit Clinical lab tests: ordered / reviewed. Independent visualization of images, tracing, or specimens: Yes. Decision to obtain medical records or history from someone other than the patient: Yes, significant other Review / Summarize previous medical records: Yes Discussed patient with another provider: Yes, Dr. Rdz Patient Progress: Stable, discharge. - Diagnostics Imaging Results: Imaging Impressions Ankle X-Ray 07/29/18 20:23 Impression: Negative for fracture. 3 Views Left Foot: Reason for examination: Pain following trauma. Findings: A fracture or other acute osseous abnormality is not identified. Degenerative changes are noted at the first metatarsophalangeal articulation with an associated hallux valgus deformity. Impression: Negative for fracture. Chest X-Ray 07/29/18 20:23 Impression: No significant radiographic abnormality. Specifically, a source for chest pain is not identified. Foot X-Ray 07/29/18 20:23 Impression: Negative for fracture. 3 Views Left Foot: Reason for examination: Pain following trauma. Findings: A fracture or other acute osseous abnormality is not identified. Degenerative changes are noted at the first metatarsophalangeal articulation with an associated hallux valgus deformity. Impression: Negative for fracture. - History Smoking Status: Never smoked - Objective Vital Signs: Initial Vital Signs Temperature (C) 36.4 C 07/29/18 19:43 Heart Rate 82 07/29/18 19:43 Respiratory Rate 18 07/29/18 19:43 Blood Pressure 104/58 L 07/29/18 19:43 O2 Sat (%) 98 07/29/18 19:43 O2 Delivery Mode Room Air Allergies/Adverse Reactions: Sulfa (Sulfonamide Antibiotics) Allergy (Severe, Verified 07/29/18 19:42) trouble breathing Home Medications: Medication Instructions Recorded Dextroamphetamine/Amphetamine 20 mg PO DAILY 06/01/15 [Adderall Xr 20 mg Capsule] Acetaminophen [Tylenol 325mg (*)] 650 mg PO Q4HRS PRN tab 03/01/17 Dextroamphetamine/Amphetamine 5 mg PO DAILY16 PRN 08/09/17 [Adderall 5 mg Tablet] FLUoxetine HCL [Fluoxetine HCl] 40 mg PO HS 08/09/17 Herbals/Supplements -Info Only 1 ea PO DAILY 08/09/17 Ranitidine HCl [Zantac] 150 mg PO DAILY 08/09/17 Laboratory Results: 07/29/18 20:55 POC Troponin I 0.00 ng/mL ng/mL (0.00-0.08) Point of Care Test Results: Chemistry 07/29/18 20:55 POC Troponin I 0.00 ng/mL ng/mL (0.00-0.08) Departure - Departure Disposition: Home, Routine, Self-Care Clinical Impression: Vasovagal episode, Chest pain, Foot pain, left, Ankle pain, left Condition: Good Instructions: Chest Pain (ED), Ankle Sprain (ED), Syncope (ED) Additional Instructions: DISCHARGE INSTRUCTIONS FROM YOUR DOCTOR Thank you for visiting our emergency department today. Please keep in mind that discharge from the emergency department does not mean that there is nothing wrong - it simply means that we have not identified an emergency condition that requires further evaluation or treatment in the hospital. You should always plan to follow up with primary care for re-evaluation of your condition in the next 2-3 days. If you have been referred to a specialist, please call as soon as possible ( today or tomorrow) to schedule your follow up appointment at the appropriate time. In regards to her chest pain, the tests we have performed are essentially normal. Serious causes of chest pain are still possible, therefore. If the pain persists tomorrow, you should return for a recheck. Rest, eat healthy well balanced low carbohydrate diet and pursue exercise/ activity as allowed by your primary care provider or client resource specialist. Try and reduce stress as much as possible. Continue your regular medications as prescribed. Schedule a follow-up appointment with your primary care provider in the next 2- 3 days for close re-evaluation. Rest, ice (on and off), elevate the foot and ankle as much possible above the level of the heart to decrease pain and swelling. Wear the Arnol for compression and splint for comfort. Ambulate as tolerated. For pain, Tylenol 500 mg every 6 hours. Do not exceed 3000 mg in a 24-hour period. Continue your regular medications as prescribed. Return for increased pain or swelling, numbness, tingling or foot or toes, calf pain, paleness or coolness of the foot or toes or for any worsening or worrisome symptoms. Return for any symptom concern, particularly chest pain, shortness of breath, rapid or irregular heartbeat, unusual fatigue, cough, coughing up blood or discolored sputum, swelling, dizziness, weakness, fainting, nausea, vomiting, abdominal pain, fever, chills, headache, or for any other new, worsening, or worrisome symptoms. People present with illnesses and injuries in different ways, and it is always possible that we have missed something. You may always return for re-evaluation if symptoms worsen or if they are not improving or if you develop new/different symptoms. Again, thank you for choosing our emergency department. We hope that you feel better. Referrals: Shemar Jarrett MD [Primary Care Provider] - 2-3 days, call for appt. Nehemias Villalobos MD [Medical Doctor] - As per Instructions (Follow-up as needed if your pain persists)
--- NOTE | 2018-07-29 21:07 | CPEKG ---
Test Reason : OPEN Blood Pressure : / mmHG Vent. Rate : 073 BPM Atrial Rate : 077 BPM P-R Int : 144 ms QRS Dur : 094 ms QT Int : 399 ms P-R-T Axes : 074 070 051 degrees QTc Int : 440 ms Sinus rhythm Confirmed by Satish Rdz ([id number]) on 07/29/2018 9:06:42 PM Referred By: Satish Rdz Confirmed By:Satish Rdz
[2018-07-29 21:32] VITALS: BP 106/67
== END 2018-07-29 21:38 | disposition home or self-care (01) ==
DX: R55 Syncope and collapse (principal); R07.89 Other chest pain; M79.672 Pain in left foot; M25.572 Pain in left ankle and joints of left foot; W19.XXXA Unspecified fall, initial encounter
CPT/HCPCS: 84484-ER; L4386